=== PATIENT | female | born 1970 | race African-American/Black ===

== ENCOUNTER 2019-08-20 06:46 | Emergency (ER) | payer OTHER ==
[2019-08-20 06:56] VITALS: TEMP 98
[2019-08-20] MEDS ORDERED: diphenhydrAMINE 50 MG/ML 1 ML VIAL IVP STA (07:08)
[2019-08-20] MEDS ORDERED: ACETAMINOPHEN TAB 500 MG TAB PO STA (07:08)
[2019-08-20] MEDS ORDERED: METOCLOPRAMIDE 5 MG/ML 2 ML VIAL IVP STA (07:08)
--- NOTE | 2019-08-20 07:11 | ED ---
Abdominal Pain HPI - General Chief Complaint: Abdominal Pain Stated Complaint: headache, SOB Time Seen by Provider: 08/20/19 06:58 Source: patient, RN notes reviewed, old records reviewed Mode of arrival: ambulatory Limitations: no limitations - History of Present Illness Initial Comments: Patient is a 49-year-old female presents emergency department today for complaints of shortness of breath, headaches, episodes of diarrhea and abdominal discomfort. She's been having symptoms for the past 2 days. He also reports having fevers and chills. She last had Tylenol 3 hours ago. Patient states that she's had exposure to a positive covid contact this week. Patient states that she has had a minor cough. - Related Data Previous Rx's Medication Instructions Recorded Ondansetron Odt [Zofran Odt] 4 mg PO Q8HR PRN #12 tab 08/20/19 Allergies Allergy/AdvReac Type Severity Reaction Status Date / Time No Known Allergies Allergy Verified 08/20/19 06:55 Review of Systems ROS Statement: Those systems with pertinent positive or pertinent negative responses have been documented in the HPI. ROS Other: All systems not noted in ROS Statement are negative. Past Medical History Past Medical History: Asthma, Hypertension, Osteoarthritis (OA) Past Surgical History: No Surgical Hx Reported Past Psychological History: Bipolar Smoking Status: Current every day smoker Past Alcohol Use History: Occasional Past Drug Use History: None Reported General Exam - General Exam Comments Initial Comments: 49-year-old female. Alert. No distress. General: Well appearing, well nourished, in no distress. Oriented x 3, normal mood and affect . Ambulating without difficulty. Skin: Good turgor, no rash, unusual bruising or prominent lesions Hair: Normal texture and distribution. HEENT: Head: Normocephalic, atraumatic, no visible or palpable masses, depressions, or scaring. Eyes: Visual acuity intact, conjunctiva clear, sclera non-icteric, EOM intact, PERRL. Ears: EACs clear, TMs translucent & cone of light visualized. hearing intact. Nose: No external lesions, mucosa non-inflamed, septum and turbinates normal Mouth: Mucous membranes moist, no mucosal lesions. Teeth/Gums: No obvious caries or periodontal disease. No gingival inflammation or significant resorption. Pharynx: Mucosa non-inflamed, no tonsillar hypertrophy or exudate Neck: Supple, without lesions, bruits, or adenopathy, thyroid non-enlarged and non-tender Heart: No cardiomegaly or thrills; regular rate and rhythm, no murmur or gallop Lungs: Clear to auscultation and percussion Abdomen: Bowel sounds normal, epigastric tenderness. Back: Spine normal without deformity or tenderness, no CVA tenderness Extremities: No amputations or deformities, cyanosis, edema or varicosities, peripheral pulses intact Musculoskeletal: Normal gait and station. No misalignment, asymmetry, crepitation, defects, tenderness, masses, effusions, decreased range of motion, instability, atrophy or abnormal strength or tone in the head, neck, spine, ribs, pelvis or extremities. Neurologic: CN 2-12 normal. Sensation to pain, touch, and proprioception normal. DTRs normal in upper and lower extremities. No pathologic reflexes. Psychiatric: Oriented X3, intact recent and remote memory, judgment and insight, normal mood and affect. Limitations: no limitations Course Vital Signs 08/20/19 08/20/19 08/20/19 06:49 06:55 07:55 Temperature 98 F Pulse Rate 99 Respiratory 18 20 20 Rate Blood Pressure 172/90 O2 Sat by Pulse 99 Oximetry 08/20/19 08/20/19 08:55 09:00 Temperature Pulse Rate 68 68 Respiratory 20 20 Rate Blood Pressure 152/85 152/85 O2 Sat by Pulse 100 100 Oximetry - Reevaluation(s) Reevaluation #1: 08/20/19 09:20 Patient was reevaluated and resting comfortably in bed and sleeping. She reports that her headache is improved after Reglan Tylenol and Benadryl. Medical Decision Making - Medical Decision Making Patient is a 49-year-old female who presents emergency department today for evaluation with chief complaint of multiple symptoms including nausea vomiting some complaints of shortness of breath. Patient reports that she's had some minor cough. He was concerned for covert. At this time patient's blood work was reviewed and unremarkable. She complains of a headache and feels better after Tylenol and Benadryl. Chest x-ray was reviewed and negative for any acute process of CT if there is any further clinical concern. Patient had no significant clinical concern at this time is not hypoxic or in any respiratory distress. This time Patient will be discharged after receiving fluids and close follow-up with return parameters. - Lab Data Result diagrams: 08/20/19 07:45 08/20/19 07:45 Lab Results 08/20/19 08/20/19 08/20/19 Range/Units 07:45 07:45 07:45 WBC 4.6 (3.8-10.6) k/uL RBC 4.64 (3.80-5.40) m/uL Hgb 14.4 (11.4-16.0) gm/dL Hct 43.2 (34.0-46.0) % MCV 93.2 (80.0-100.0) fL MCH 31.0 (25.0-35.0) pg MCHC 33.3 (31.0-37.0) g/dL RDW 13.0 (11.5-15.5) % Plt Count 138 L (150-450) k/uL Neutrophils % 67 % Lymphocytes % 25 % Monocytes % 4 % Eosinophils % 1 % Basophils % 0 % Neutrophils # 3.1 (1.3-7.7) k/uL Lymphocytes # 1.2 (1.0-4.8) k/uL Monocytes # 0.2 (0-1.0) k/uL Eosinophils # 0.0 (0-0.7) k/uL Basophils # 0.0 (0-0.2) k/uL PT 10.1 (9.0-12.0) sec INR 1.0 (<1.2) APTT 22.5 (22.0-30.0) sec D-Dimer 0.20 (<0.60) mg/L FEU Sodium 139 (137-145) mmol/L Potassium 3.8 (3.5-5.1) mmol/L Chloride 104 (98-107) mmol/L Carbon Dioxide 22 (22-30) mmol/L Anion Gap 13 mmol/L BUN 15 (7-17) mg/dL Creatinine 1.00 (0.52-1.04) mg/dL Est GFR (CKD-EPI)AfAm 76 (>60 ml/min/1.73 sqM) Est GFR (CKD-EPI)NonAf 66 (>60 ml/min/1.73 sqM) Glucose 96 (74-99) mg/dL Plasma Lactic Acid Trent (0.7-2.0) mmol/L Calcium 9.1 (8.4-10.2) mg/dL Magnesium 1.9 (1.6-2.3) mg/dL Total Bilirubin 0.3 (0.2-1.3) mg/dL AST 30 (14-36) U/L ALT 26 (4-34) U/L Alkaline Phosphatase 77 (38-126) U/L Lactate Dehydrogenase 351 (313-618) U/L Troponin I (0.000-0.034) ng/mL Total Protein 9.0 H (6.3-8.2) g/dL Albumin 4.2 (3.5-5.0) g/dL 08/20/19 08/20/19 Range/Units 07:45 07:45 WBC (3.8-10.6) k/uL RBC (3.80-5.40) m/uL Hgb (11.4-16.0) gm/dL Hct (34.0-46.0) % MCV (80.0-100.0) fL MCH (25.0-35.0) pg MCHC (31.0-37.0) g/dL RDW (11.5-15.5) % Plt Count (150-450) k/uL Neutrophils % % Lymphocytes % % Monocytes % % Eosinophils % % Basophils % % Neutrophils # (1.3-7.7) k/uL Lymphocytes # (1.0-4.8) k/uL Monocytes # (0-1.0) k/uL Eosinophils # (0-0.7) k/uL Basophils # (0-0.2) k/uL PT (9.0-12.0) sec INR (<1.2) APTT (22.0-30.0) sec D-Dimer (<0.60) mg/L FEU Sodium (137-145) mmol/L Potassium (3.5-5.1) mmol/L Chloride (98-107) mmol/L Carbon Dioxide (22-30) mmol/L Anion Gap mmol/L BUN (7-17) mg/dL Creatinine (0.52-1.04) mg/dL Est GFR (CKD-EPI)AfAm (>60 ml/min/1.73 sqM) Est GFR (CKD-EPI)NonAf (>60 ml/min/1.73 sqM) Glucose (74-99) mg/dL Plasma Lactic Acid Trent 2.6 H* (0.7-2.0) mmol/L Calcium (8.4-10.2) mg/dL Magnesium (1.6-2.3) mg/dL Total Bilirubin (0.2-1.3) mg/dL AST (14-36) U/L ALT (4-34) U/L Alkaline Phosphatase (38-126) U/L Lactate Dehydrogenase (313-618) U/L Troponin I <0.012 (0.000-0.034) ng/mL Total Protein (6.3-8.2) g/dL Albumin (3.5-5.0) g/dL 08/20/19 08:16 EKG shows normal sinus rhythm, inferior infarct indeterminate. Abnormal EKG. Ventricular rate 77 bpm. Was 166 most seconds. Chemistry showed a 76 no seconds. QT QTc is 420/44 ms. - Radiology Data Radiology results: report reviewed No suspicious acute infiltrate. Patient may benefit with CT evaluation of strong clinical suspicion persist. Disposition Clinical Impression: Nausea and vomiting, Headache, Dehydration Disposition: HOME SELF-CARE Condition: Stable Instructions (If sedation given, give patient instructions): Acute Nausea and Vomiting (ED), Viral Syndrome (ED) Additional Instructions: Patient's common swab will return in the next 1-2 days if there is any further concerns to call for follow-up. Patient advised to return to the emergency department if any alarming signs or symptoms occur. Use nausea medicine alternate between Motrin and Tylenol for pain. There is any worsening shortness breath or other complaints return to the ED. Prescriptions: Ondansetron Odt [Zofran Odt] 4 mg PO Q8HR PRN #12 tab PRN Reason: Nausea Is patient prescribed a controlled substance at d/c from ED?: No Referrals: Nonstaff,Physician [REFERRING] - 1-2 days Time of Disposition: 10:06
[2019-08-20 08:06] LABS: Basophils % (A) 0 %; Eosinophils % (A) 1 %; HCT 43.2 % (34.0-46.0); HGB 14.4 gm/dL (11.4-16.0); Lymphocytes # (A) 1.2 k/uL (1.0-4.8); Lymphocytes % (A) 25 %; MCHC 33.3 g/dL (31.0-37.0); MCV 93.2 fL (80.0-100.0); Mean Platelet Volume 9.4; Monocytes # (A) 0.2 k/uL (0-1.0); Monocytes % (A) 4 %; Neutrophils # (A) 3.1 k/uL (1.3-7.7); Neutrophils % (A) 67 %; Platelet Count 138 k/uL (150-450); RBC 4.64 m/uL (3.80-5.40); WBC 4.6 k/uL (3.8-10.6)
[2019-08-20 08:26] LABS: D-Dimer 0.2 mg/L FEU (<0.60); Partial Thromboplastin Time 22.5 sec (22.0-30.0); Prothrombin Time 10.1 sec (9.0-12.0)
--- NOTE | 2019-08-20 08:40 | XR ---
EXAMINATION TYPE: XR chest 1V portable DATE OF EXAM: 08/20/2019 COMPARISON: NONE HISTORY: Fever, suspected Covid19 pneumonia. TECHNIQUE: Single AP portable frontal upright view of the chest is obtained. FINDINGS: There is no focal air space opacity, pleural effusion, or pneumothorax seen. The cardiac silhouette size is upper limits of normal. The osseous structures are intact. IMPRESSION: No suspicious acute infiltrate. Patient may benefit with CT evaluation if strong clinica l suspicion persists.
[2019-08-20 08:52] LABS: Albumin 4.2 g/dL (3.5-5.0); Calcium 9.1 mg/dL (8.4-10.2); Magnesium 1.9 mg/dL (1.6-2.3); Potassium 3.8 mmol/L (3.5-5.1); Total Bilirubin 0.3 mg/dL (0.2-1.3)
[2019-08-20] MEDS ORDERED: SODIUM CHLORIDE 0.9% 1,000 ML IV ONE (09:14)
[2019-08-20] MEDS ORDERED: SODIUM CHLORIDE 0.9% 1,000 ML IV SCH (09:15)
[2019-08-20 09:19] VITALS: RESP 20
[2019-08-20 10:32] VITALS: BP 143/79; PULSE 77
[2019-08-20 16:05] LABS: Ferritin 232.4 ng/mL (10.0-291.0)
== END 2019-08-20 10:36 | disposition home or self-care (01) ==
LOC: EC 06:46
DX: E86.0 Dehydration (principal); R11.2 Nausea with vomiting, unspecified; R51 Headache; R06.02 Shortness of breath; R05 Cough; R50.9 Fever, unspecified; R10.816 Epigastric abdominal tenderness; F17.200 Nicotine dependence, unspecified, uncomplicated; Z20.828 Contact with and (suspected) exposure to other viral communicable diseases
CPT/HCPCS: 99285; 96374; 96375; 96361; 36415; 93005; 85379; 80053; 82728; 83605; 83615; 83735; 84484; 85025; 85610; 85730; 86140; 87040; 84145; 87635; 71045; J1200; J2765

== ENCOUNTER → 2020-04-30 | Outpatient (CLI) | payer OTHER ==
--- NOTE | 2020-04-30 18:36 | US ---
EXAMINATION TYPE: US transvaginal DATE OF EXAM: 04/30/2020 COMPARISON: NONE CLINICAL HISTORY: 49-year-old female R10.2 female pelvic pain. TECHNIQUE: Transvaginal (TV). Date of LMP: 2 months prior FINDINGS: EXAM MEASUREMENTS: Uterus: 6.9 x 4.2 x 4.1 cm Endometrial Stripe: 0.7 cm Right Ovary: not visualized/obscured by overlying bowel gas Left Ovary: not visualized/obscured by overlying bowel gas 1. Uterus: heterogeneous, probable fibroids, anterior hyperechoic mass measuring 1.4 x 1.3 x 1.1cm,. Posteriorly, there is a hypoechoic mass measuring 1.8 x 1.1 x 1.2cm 2. Endometrium: wnl 3. Right Ovary: not visualized/obscured by overlying bowel gas 4. Left Ovary: not visualized/obscured by overlying bowel gas 5. Bilateral Adnexa: wnl 6. Posterior cul-de-sac: wnl IMPRESSION: 1. Endometrial stripe measuring 7 mm. The monomer recovery supervisor indicates LMP 2 months prior. If the patient is at menopause, we would expect the endometrial stripe to subsequently decreased in thickness. Follow- up as indicated. 2. At least 2 oh uterine fibroids measuring up to 1.8 cm. 3. Neither ovary could be visualized.
== END | disposition home or self-care (01) ==
LOC: RADUSWWP 14:10
PROVIDERS: ATTEND Internal Medicine
DX: D25.9 Leiomyoma of uterus, unspecified (principal)
CPT/HCPCS: 76830

== ENCOUNTER 2021-11-03 11:42 | Observation (INO) | payer OTHER ==
[2021-11-03 12:40] LABS: INR 0.9 (<1.2); Prothrombin Time 10.1 sec (9.0-12.0)
[2021-11-03 12:44] LABS: Partial Thromboplastin Time 21.4 sec (22.0-30.0)
[2021-11-03 12:50] LABS: Albumin 3.6 g/dL (3.5-5.0); Calcium 8.7 mg/dL (8.4-10.2); Magnesium 1.8 mg/dL (1.6-2.3); Potassium 3.9 mmol/L (3.5-5.1); Total Bilirubin 0.3 mg/dL (0.2-1.3); Total Protein 7.8 g/dL (6.3-8.2)
--- NOTE | 2021-11-03 12:55 | XR ---
EXAMINATION TYPE: XR chest 2V DATE OF EXAM: 11/03/2021 COMPARISON: Chest x-ray August 20, 2019 HISTORY: Chest pain. TECHNIQUE: Frontal and lateral views of the chest are obtained. FINDINGS: Eventration in the anterior aspect right hemidiaphragm. Overlying EKG leads on current stud y. There is no focal air space opacity, pleural effusion, or pneumothorax seen. The cardiac silhoue tte size is upper limits of normal. The osseous structures are intact. IMPRESSION: No acute cardiopulmonary process.
[2021-11-03] MEDS ORDERED: hydrALAZINE HCL 20 MG/ML 1 ML VIAL IVP STA ×2 (12:57→13:46)
[2021-11-03 13:12] LABS: Anisocytosis Slight; Basophils % (A) 0 %; Eosinophils % (A) 1 %; HCT 38.4 % (34.0-46.0); HGB 11.8 gm/dL (11.4-16.0); Hypochromasia Slight; Lymphocytes # (A) 1.4 k/uL (1.0-4.8); Lymphocytes % (A) 30 %; MCH 26.6 pg (25.0-35.0); MCHC 30.7 g/dL (31.0-37.0); MCV 86.6 fL (80.0-100.0); Mean Platelet Volume 10.1; Monocytes # (A) 0.2 k/uL (0-1.0); Monocytes % (A) 5 %; Neutrophils # (A) 2.8 k/uL (1.3-7.7); Neutrophils % (A) 62 %; Platelet Count 116 k/uL (150-450); RBC 4.44 m/uL (3.80-5.40); RDW 17.3 % (11.5-15.5); WBC 4.6 k/uL (3.8-10.6)
--- NOTE | 2021-11-03 13:36 | ED ---
Chest Pain HPI - General Chief Complaint: Chest Pain Stated Complaint: chest pain Time Seen by Provider: 11/03/21 11:57 Source: patient, EMS, RN notes reviewed Mode of arrival: EMS Limitations: no limitations - History of Present Illness Initial Comments: This a 51-year-old female presents emergency Department from doctor's office with chief complaint chest pain. Patient was sent in secondary hypertension chest pain. She states she been off her blood pressure medication for 3 months states that her insurance was messed up. Patient started having worsening chest pain today this is different than usual. Patient states she denies any shortness breath she has slight nausea no diaphoretic episodes. Patient has a significant family history of heart disease. - Related Data Previous Rx's Medication Instructions Recorded Ondansetron Odt [Zofran Odt] 4 mg PO Q8HR PRN #12 tab 08/20/19 Allergies Allergy/AdvReac Type Severity Reaction Status Date / Time No Known Allergies Allergy Verified 08/20/19 06:55 Review of Systems ROS Statement: Those systems with pertinent positive or pertinent negative responses have been documented in the HPI. ROS Other: All systems not noted in ROS Statement are negative. Past Medical History Past Medical History: Asthma, Hypertension, Osteoarthritis (OA) Past Surgical History: No Surgical Hx Reported Past Psychological History: Bipolar Smoking Status: Current every day smoker Past Alcohol Use History: Occasional Past Drug Use History: None Reported General Exam General appearance: alert, in no apparent distress Head exam: Present: atraumatic, normocephalic, normal inspection Eye exam: Present: normal appearance, PERRL, EOMI. Absent: scleral icterus, conjunctival injection, periorbital swelling Neck exam: Present: normal inspection. Absent: tenderness, meningismus, lymphadenopathy Respiratory exam: Present: normal lung sounds bilaterally. Absent: respiratory distress, wheezes, rales, rhonchi, stridor Cardiovascular Exam: Present: regular rate, normal rhythm, normal heart sounds. Absent: systolic murmur, diastolic murmur, rubs, gallop, clicks GI/Abdominal exam: Present: soft, normal bowel sounds. Absent: distended, tenderness, guarding, rebound, rigid Course Vital Signs 11/03/21 11/03/21 11:46 13:05 Temperature 98.4 F Pulse Rate 61 68 Respiratory 20 18 Rate Blood Pressure 194/104 210/102 O2 Sat by Pulse 100 100 Oximetry Chest Pain MDM - MDM 51-year-old presented for chest pain. Patient has have significant hypertension risk factors including family heart disease patient's troponin 0.014 patient's chest pain is different than usual in concern for ACS. Patient be admitted for chronic rule out. Disposition Clinical Impression: Chest pain, Hypertension Disposition: ADMITTED IP TO THIS HOSP Condition: Fair Referrals: None,Stated [Primary Care Provider] - 1-2 days Time of Disposition: 13:36
[2021-11-03] MEDS ORDERED: NITROGLYCERIN SL TABS 0.4 MG TAB SUBLINGUAL PRN (13:37)
--- NOTE | 2021-11-03 15:50 | P.HPIM ---
History of Present Illness H&P Date: 11/03/21 History of Presenting Illness: Patient is a very pleasant 51-year-old female with a past medical history of CAD with previous UT, hypertension, nicotine dependence smoking one pack of cigarettes daily, and alcohol use/abuse. Patient reports that she experienced a previous heart attack and was supposed to follow up outpatient with cardiology for cardiac cath but states due to insurance reasons she never did. Patient also reports that she stopped taking her blood pressure medications 3 months ago because her insurance was messed up. She states over the last month she has been experiencing intermittent chest pain but reports today the chest pain she was experiencing seemed to be a little worse and she knew her blood pressure was out of control. Patient states she became diaphoretic and nauseous and went to her PCP for evaluation. She reports at PCPs office upon obtaining taking her blood pressure at PCPs office called an ambulance to transport her to the hospital. Upon arrival to the hospital patient was found to be in hypertensive urgency with blood pressure of 210/102 and heart rate of 61. EKG was completed showing sinus rhythm at 60 bpm. Chest x-ray negative for acute cardio pulmonary process. CBC revealing thrombocytopenia with platelets 116 (this is chronic in nature). CMP revealing slight elevation of AST of 68 and ALT of 43. Troponin 0.014. Patient was given 2 doses of hydralazine in the emergency department resulting in significant improvement of blood pressure down to 168/82 and being started on amlodipine 10 mg daily. Patient admitted under our services with consultation to cardiology. Upon evaluation at bedside patient reports pain has improved and currently rates 2 out of 10 to midsternal chest. Patient reports this pain being a pressure-like achy pain to her midsternal chest. She denies having any dizziness, lightheadedness, diaphoresis, palpitations, shortness of breath, dyspnea with exertion, cough or congestion, abdominal pain, nausea, vomiting, or experiencing any numbness/tingling/weakness/swelling in her extremities. Review of systems: Pertinent positives and negatives as discussed in HPI, a complete review of systems was performed and all other systems are negative. Physical exam: Vital signs reviewed and stable. General: Nontoxic, no distress and appears stated age. Derm: Skin warm and dry, normal coloration for ethnicity. Head: Atraumatic, normocephalic and symmetric. Eyes: EOMs intact, no lid lag, and anicteric sclera Mouth: no lip lesions, mucus membranes moist Cardiovascular: regular rate and rhythm with normal S1S2, no murmur, positive posterior tibial pulses bilaterally, and cap refill < 2 seconds. Lungs: Respirations even, regular, and unlabored on room air. Lungs CTA bilaterally, no rhonchi, no rales, no wheezing, and no accessory muscle usage. Abdominal: soft, nontender to palpation, no guarding, no appreciable organomegaly Ext: ROM intact. No gross muscle atrophy, no edema, no contractures Neuro: Speech clear, face symmetrical and CN II-XII grossly intact with no noted focal neuro deficits Psych: Alert and oriented to person, place, time, and situation. Appropriate and pleasant affect. Assessment and Plan of Care: Chest pain, rule out acute coronary event -Cardiology consult, appreciate further recommendations -Telemetry monitoring -Trend troponins -Cardiac diet, NPO at midnight -Aspirin, atorvastatin, and metoprolol -Lipid profile with a.m. labs. -Echocardiogram Hypertensive urgency -Blood pressure 210/102, patient was given 2 doses of hydralazine in the emergency department resulting in significant improvement of blood pressure down to 168/82 and being started on amlodipine 10 mg daily. -Continue to monitor vital signs closely. -Telemetry monitoring -Echocardiogram Nicotine dependence -Patient educated on benefits of smoking cessation and risks associated with continued use. -Nicotine patch Alcohol use/abuse -Patient reports drinking approximately one case of beer per week. -Patient reports last alcoholic drink being 2 days ago. -CIWA protocol with symptom triggered medication management with benzodiazepines. -Daily thiamine, multivitamins and folic acid. The patient is admitted with an anticipated less than 2 midnight stay for evalu ation of chest pain and hypertensive urgency CODE STATUS: Full code DVT prophylaxis: Heparin Discussed with: Patient and RN Anticipated discharge date: Tomorrow Anticipated discharge place: Home A total of 45 minutes was spent on the care of this complex patient more than 50% of the time was spent in counseling and care coordination. I reviewed the documentation as provided by the GENNARO above, who is the original author of this note. I agree with the documented assessment and plan, with the following changes: none Past Medical History Past Medical History: Asthma, Hypertension, Osteoarthritis (OA) Past Surgical History: No Surgical Hx Reported Past Psychological History: Bipolar Smoking Status: Current every day smoker Past Alcohol Use History: Occasional Past Drug Use History: None Reported Medications and Allergies Home Medications Medication Instructions Recorded Confirmed Type No Known Home Medications 11/03/21 11/03/21 History Allergies Allergy/AdvReac Type Severity Reaction Status Date / Time No Known Allergies Allergy Verified 08/20/19 06:55 Physical Exam Vitals: Vital Signs Temp Pulse Resp BP Pulse Ox 11/03/21 14:58 168/82 11/03/21 14:22 163/94 11/03/21 13:50 184/104 11/03/21 13:05 68 18 210/102 100 11/03/21 11:46 98.4 F 61 20 194/104 100 Intake and Output 11/03/21 11/03/21 11/03/21 06:59 14:59 22:59 Other: Weight 66.224 kg Results CBC & Chem 7: 11/03/21 12:01 11/03/21 12:01 Labs: Abnormal Lab Results - Last 24 Hours (Table) 11/03/21 11/03/21 11/03/21 Range/Units 12:01 12:01 12:01 MCHC 30.7 L (31.0-37.0) g/dL RDW 17.3 H (11.5-15.5) % Plt Count 116 L (150-450) k/uL APTT 21.4 L (22.0-30.0) sec Chloride 108 H (98-107) mmol/L AST 68 H (14-36) U/L ALT 43 H (4-34) U/L
[2021-11-03] MEDS: amLODIPine 10 MG TAB PO SCH (17:01)
[2021-11-03] MEDS ORDERED: LORazepam 2 MG/ML INJ IV PRN ×3 (17:17)
[2021-11-03] MEDS: THIAMINE 100 MG TAB PO SCH (17:48)
[2021-11-03] MEDS: NICOTINE 21MG/24HR PATCH TRANSDERM SCH (17:48)
[2021-11-03] MEDS: HEPARIN SODIUM,PORCINE/PF 5,000 UNIT/0.5 ML SYRINGE SQ SCH (23:27)
[2021-11-04 07:39] VITALS: RESP 18
[2021-11-04] MEDS: NICOTINE 21MG/24HR PATCH TRANSDERM SCH (07:51)
[2021-11-04] MEDS: amLODIPine 10 MG TAB PO SCH (07:51)
[2021-11-04] MEDS: THIAMINE 100 MG TAB PO SCH (07:51)
[2021-11-04] MEDS: HEPARIN SODIUM,PORCINE/PF 5,000 UNIT/0.5 ML SYRINGE SQ SCH (07:51)
[2021-11-04] MEDS ORDERED: amLODIPine 10 MG TAB PO SCH (09:00)
[2021-11-04] MEDS ORDERED: ASPIRIN 325 MG TAB PO SCH (09:00)
[2021-11-04] MEDS ORDERED: FOLIC ACID 1 MG TAB PO SCH (09:00)
[2021-11-04] MEDS ORDERED: MULTIVITAMINS, THERA 1 EACH TAB PO SCH (09:00)
--- NOTE | 2021-11-04 09:17 | P.CRDCN ---
History of Present Illness History of present illness: HISTORY OF PRESENT ILLNESS: This is a 51-year-old female with a past medical history significant for hypertension, nicotine dependence, and alcohol use. 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 We have been asked to see the patient in consultation for hypertension and chest pain. Patient examined at the bedside. The patient reports yesterday when she was walking she began to feel "funny" in her head. She reports having chest pain in the middle of her chest. She states the pain was nonradiating. She denied any shortness of breath. Patient presented to the hospital and was found to have a blood pressure elevated over 200 systolic. Patient was started on amlodipine 10 mg daily. Blood pressures remain elevated this morning with a systolic in the 170s. The patient denies any further episodes of chest pain or pressure. The patient states that she does have a history of hypertension and was prescribed 2 blood pressure medications however she has not taken these secondary to insurance issues. * EKG reveals sinus mechanism with no signs of acute ischemia * Chest xray negative for acute process * Laboratory data: WBC 4.6. Hemoglobin 11.8. Platelet count 116. Sodium 139. Potassium 3.9. BUN 11. Creatinine 0.95. Troponin negative x 3. * Current home cardiac medications include none. Patient currently not taking her HTN meds. REVIEW OF SYSTEMS: At the time of my exam: CONSTITUTIONAL: Denies fever or chills. HEENT: Denies blurred vision, vision changes, or eye pain. Denies hemoptysis CARDIOVASCULAR: Denies chest pain. Denies orthopnea. Denies PND. Denies palpitations RESPIRATORY: Denies shortness of breath. GASTROINTESTINAL: Denies abdominal pain. Denies nausea or vomiting. HEMATOLOGIC: Denies bleeding disorders. GENITOURINARY: Denies any blood in urine. SKIN: Denies pruitis. Denies rash. PHYSICAL EXAM: VITAL SIGNS: Reviewed. GENERAL: Well-developed in no acute distress. HEENT: Head is normocephalic. Pupils are equal, round. Sclerae anicteric. Mucous membranes of the mouth are moist. Neck supple. No JVD or thyromegaly LUNGS: Respirations even and unlabored. Lungs essentially clear to auscultation bilaterally. HEART: Regular rate and rhythm. S1 and S2 heard. ABDOMEN: Soft. Nondistended. Nontender. EXTREMITIES: Normal range of motion. No clubbing or cyanosis. Peripheral pulses intact. No lower extremity edema NEUROLOGIC: Awake and alert. Oriented x 3. ASSESSMENT: Chest pain, troponins negative 3 Hypertensive urgency History of hypertension Nicotine dependence History of alcohol abuse Mildly elevated LFTs Thrombocytopenia, platelet count 119 PLAN: An acute coronary event has been ruled out Obtain 2-D echo to assess contracture care function Continue amlodipine 10 mg the morning Add valsartan 160 mg at night Continue to monitor blood pressure Absence from alcohol recommended Smoking cessation encouraged Patient may discharged home today from a cardiac standpoint and follow up on an outpatient basis Nurse practitioner note has been reviewed by physician. Signing provider agrees with the documented findings, assessment, and plan of care. Past Medical History Past Medical History: Asthma, Hypertension, Osteoarthritis (OA) History of Any Multi-Drug Resistant Organisms: None Reported Past Surgical History: No Surgical Hx Reported Past Anesthesia/Blood Transfusion Reactions: No Reported Reaction Past Psychological History: Bipolar Smoking Status: Current every day smoker Past Alcohol Use History: Occasional Past Drug Use History: None Reported Medications and Allergies Home Medications Medication Instructions Recorded Confirmed Type No Known Home Medications 11/03/21 11/03/21 History Allergies Allergy/AdvReac Type Severity Reaction Status Date / Time No Known Allergies Allergy Verified 08/20/19 06:55 Physical Exam Vitals: Vital Signs Temp Pulse Pulse Resp BP BP Pulse Ox 11/04/21 07:00 98.2 F 67 18 177/101 100 11/04/21 01:30 98.0 F 79 16 173/75 91 L 11/04/21 00:43 84 15 11/03/21 20:00 84 11/03/21 19:10 98.0 F 84 15 160/84 100 11/03/21 16:11 98.4 F 89 18 169/84 99 11/03/21 14:58 168/82 11/03/21 14:22 163/94 11/03/21 13:50 184/104 11/03/21 13:05 68 18 210/102 100 11/03/21 11:46 98.4 F 61 20 194/104 100 Intake and Output 11/03/21 11/04/21 11/04/21 22:59 06:59 14:59 Intake Total 500 Balance 500 Intake: Oral 500 Other: Voiding Method Toilet Toilet # Voids 2 Weight 66.224 kg Results 11/03/21 12:01 08/03/22 12:01 Cardiac Enzymes 11/03/21 11/03/21 11/03/21 Range/Units 12:01 12:01 15:40 AST 68 H (14-36) U/L Troponin I 0.014 0.012 (0.000-0.034) ng/mL 11/03/21 Range/Units 18:34 AST (14-36) U/L Troponin I 0.023 (0.000-0.034) ng/mL Coagulation 11/03/21 Range/Units 12:01 PT 10.1 (9.0-12.0) sec APTT 21.4 L (22.0-30.0) sec CBC 11/03/21 Range/Units 12:01 WBC 4.6 (3.8-10.6) k/uL RBC 4.44 (3.80-5.40) m/uL Hgb 11.8 (11.4-16.0) gm/dL Hct 38.4 (34.0-46.0) % Plt Count 116 L (150-450) k/uL Comprehensive Metabolic Panel 11/03/21 Range/Units 12:01 Sodium 139 (137-145) mmol/L Potassium 3.9 (3.5-5.1) mmol/L Chloride 108 H (98-107) mmol/L Carbon Dioxide 27 (22-30) mmol/L BUN 11 (7-17) mg/dL Creatinine 0.95 (0.52-1.04) mg/dL Glucose 88 (74-99) mg/dL Calcium 8.7 (8.4-10.2) mg/dL AST 68 H (14-36) U/L ALT 43 H (4-34) U/L Alkaline Phosphatase 72 (38-126) U/L Total Protein 7.8 (6.3-8.2) g/dL Albumin 3.6 (3.5-5.0) g/dL Current Medications Generic Name Dose Route Start Last Admin Trade Name Freq PRN Reason Stop Dose Admin Amlodipine Besylate 10 mg 11/03/21 16:52 11/04/21 07:51 Amlodipine 10 Mg Tab PO 10 mg DAILY ONELIA Administration Aspirin 325 mg 11/04/21 09:00 11/04/21 07:51 Aspirin 325 Mg Tab PO 325 mg DAILY ONELIA Administration Folic Acid 1 mg 11/04/21 09:00 11/04/21 07:51 Folic Acid 1 Mg Tab PO 1 mg DAILY ONELIA Administration Heparin Sodium (Porcine) 5,000 unit 11/04/21 00:00 11/04/21 07:51 Heparin Sodium,Porcine/Pf 5,000 Unit/0.5 Ml Syringe SQ 5,000 unit Q8HR ONELIA Administration Lorazepam 1 mg 11/03/21 17:17 Lorazepam 2 Mg/Ml Inj IV Q2HR PRN CIWA 8 or 9 Lorazepam 1 mg 11/03/21 17:17 Lorazepam 2 Mg/Ml Inj IV Q1HR PRN CIWA 10 to 15 Lorazepam 2 mg 11/03/21 17:17 Lorazepam 2 Mg/Ml Inj IV 11/05/21 17:17 Q10M PRN CIWA 16 or higher Multivitamins 1 each 11/04/21 09:00 11/04/21 07:51 Multivitamins, Thera 1 Each Tab PO 1 each DAILY ONELIA Administration Nicotine 1 patch 11/03/21 17:15 11/04/21 07:51 Nicotine 21mg/24hr Patch TRANSDERM 1 patch DAILY ONELIA Administration Nitroglycerin 0.4 mg 11/03/21 13:37 Nitroglycerin Sl Tabs 0.4 Mg Tab SUBLINGUAL Q5M PRN Chest Pain Thiamine HCl 100 mg 11/03/21 17:30 11/04/21 07:51 Thiamine 100 Mg Tab PO 100 mg BID-W/MEALS ONELIA Administration Intake and Output 11/03/21 11/04/21 11/04/21 22:59 06:59 14:59 Intake Total 500 Balance 500 Intake: Oral 500 Other: Voiding Method Toilet Toilet # Voids 2 Weight 66.224 kg 11/03/21 12:01 11/03/21 12:01
[2021-11-04 09:28] LABS: Chol/HDL Ratio 2.55 Ratio; LDL Cholesterol,Calculated 77.2 mg/dL (0.0-131.0)
[2021-11-04 14:15] VITALS: BP 177/89; PULSE 73; TEMP 97.9
--- NOTE | 2021-11-04 14:52 | P.DS ---
Providers Date of admission: 11/03/21 13:46 Expected date of discharge: 11/04/21 Attending physician: Michoacano Da Silva MD Consults: 11/03/21 13:37 Consult Physician Urgent Consulting Provider: Benjamín Smith Consult Reason/Comments: chest pain, HTN Do you want consulting provider notified?: Yes Primary care physician: Stated None Hospital Course: Discharge Diagnosis: Chest pain, acute coronary event ruled out. Cardiology patient cleared for discharge and to follow-up outpatient in their office in one week to obtain echocardiogram results and continued close monitoring of hypertension. Hypertensive urgency, Patient was started on an being discharged home with prescriptions for amlodipine 10 mg daily and valsartan 160 mg nightly. Patient educated on importance of monitoring her blood pressures daily and documenting these findings in a daily log/sternal to bring with her to her next doctor's appointments as further adjustments may be needed to her blood pressure medication regimen. Nicotine dependence. Patient educated on benefits of smoking cessation and risks associated with continued use. Alcohol use/abuse. Recommended cessation of all alcohol use. Your liver enzymes were slightly elevated and platelets low which could reflect alcohol abuse/misuse, however it is important to follow up outpatient with your primary care provider for continued monitoring and repeat labs to monitor these levels. Slightly elevated liver enzymes, likely secondary to daily alcohol use/abuse. Patient again encouraged to stop drinking alcohol and to follow up outpatient with her primary care provider for continued monitoring and repeat labs. Thrombocytopenia, appears chronic in nature. Patient educated she'll need to follow up outpatient with her primary care provider for continued monitoring and repeat labs. Hospital Course: Patient is a very pleasant 51-year-old female with a past medical history of CAD with previous [place], hypertension, nicotine dependence smoking one pack of cigarettes daily, and alcohol use/abuse. Patient reports that she experienced a previous heart attack and was supposed to follow up outpatient with cardiology for cardiac cath but states due to insurance reasons she never did. Patient also reports that she stopped taking her blood pressure medications 3 months ago because her insurance was messed up. She states over the last month she has been experiencing intermittent chest pain but reports today the chest pain she was experiencing seemed to be a little worse and she knew her blood pressure was out of control. Patient states she became diaphoretic and nauseous and went to her PCP for evaluation. She reports at PCPs office upon obtaining taking her blood pressure at PCPs office called an ambulance to transport her to the hospital. Upon arrival to the hospital patient was found to be in hypertensive urgency with blood pressure of 210/102 and heart rate of 61. EKG was completed showing sinus rhythm at 60 bpm. Chest x-ray negative for acute cardio pulmonary process. CBC revealing thrombocytopenia with platelets 116 (this is chronic in nature). CMP revealing slight elevation of AST of 68 and ALT of 43. Troponin 0.014. Patient was given 2 doses of hydralazine in the emergency department resulting in significant improvement of blood pressure down to 168/82 and being started on amlodipine 10 mg daily. Patient admitted under our services with consultation to cardiology. Patient monitored overnight. She reports feeling great with full resolution of chest pain and reports only complaint this morning is a headache secondary to not having caffeine. Troponins were trended throughout the night of -0.014, 0.012, and 0.023. Lipid profile unremarkable. Patient underwent an echocardiogram results currently pending, cardiology added valsartan 160 mg nightly in addition to amlodipine. Cardiology recommending outpatient follow-up in their office and stated patient can obtain her echocardiogram results at follow-up visit. Patient is medically stable at this time. Blood pressure is better controlled and she is being discharged home with prescriptions for amlodipine 10 mg daily and valsartan 160 mg nightly. Patient educated on importance of taking these medications exactly as prescribed and monitoring her blood pressures daily and documenting these findings in a daily log/sternal to bring with her to her next doctor's appointments as further adjustments may be needed to her blood pressure medication regimen. Patient to follow up outpatient with PCP and cardiology. Physical exam: Vital signs reviewed and stable. General: Nontoxic, no distress and appears stated age. Derm: Skin warm and dry, normal coloration for ethnicity. Head: Atraumatic, normocephalic and symmetric. Eyes: EOMs intact, no lid lag, and anicteric sclera Mouth: no lip lesions, mucus membranes moist Cardiovascular: regular rate and rhythm with normal S1S2, no murmur, positive posterior tibial pulses bilaterally, and cap refill < 2 seconds. Lungs: Respirations even, regular, and unlabored on room air. Lungs CTA bilate rally, no rhonchi, no rales, no wheezing, and no accessory muscle usage. Abdominal: soft, nontender to palpation, no guarding, no appreciable organomegaly Ext: ROM intact. No gross muscle atrophy, no edema, no contractures Neuro: Speech clear, face symmetrical and CN II-XII grossly intact with no noted focal neuro deficits Psych: Alert and oriented to person, place, time, and situation. Appropriate and pleasant affect. A total of 35 minutes of time were spent preparing this complex discharge summary. Pt was discharged on 11/04/21 at 2:48 PM. I reviewed the documentation as provided by the GENNARO above, who is the original author of this note. I agree with the documented assessment and plan, with the following changes: none Patient Condition at Discharge: Stable Plan - Discharge Summary Discharge Rx Participant: No New Discharge Prescriptions: New amLODIPine [Norvasc] 10 mg PO DAILY 30 Days #30 tab Valsartan [Diovan] 160 mg PO HS 30 Days #30 tab Discharge Medication List Valsartan [Diovan] 160 mg PO HS 30 Days #30 tab 11/04/21 [Rx] amLODIPine [Norvasc] 10 mg PO DAILY 30 Days #30 tab 11/04/21 [Rx] Follow up Appointment(s)/Referral(s): Emeterio Corbin MD [STAFF PHYSICIAN] - 1 Week (Office will call with appointment time and date.) Maulik Rivera MD [REFERRING] - 1 Week Patient Instructions/Handouts: Chest Pain (DC) Activity/Diet/Wound Care/Special Instructions: Activity: As tolerated. Take breaks as needed. Diet: Heart healthy and carb consistent diet. Avoid salts, or foods with hidden salts such as canned or boxed foods and frozen dinners. Extra salt makes your heart work harder and traps the fluid in your body for longer. Special Instructions: Take all of your medications as directed and remember to keep all of your doctor's appointments and follow-up as needed. It is of utmost importance to ensure that you're taking her blood pressure medications as prescribed. Uncontrolled blood pressure places you at risks for significant deterioration in your health and can lead to adverse effects such as stroke, heart disease, kidney disease, and even . Please monitoring your blood pressures daily at home. Document these findings and a daily log/journal to bring with you to your next doctor's appointment. Recommend smoking cessation. Also recommend cessation of alcohol use. Your liver enzymes were slightly elevated and platelets low which could reflect alcohol abuse/misuse, however it is important to follow up outpatient with your primary care provider for continued monitoring and repeat labs to monitor these levels. You will need to follow up as advised with water resources project manager, Dr. Corbin to receive your echocardiogram results. Thank you for allowing us to participate in your care, it was truly a pleasure having you for our patient!!! Discharge Disposition: HOME SELF-CARE
--- NOTE | 2021-11-04 15:19 | CA ---
Transthoracic Echo Report Name: Tina Solorzano Age: 51 Gender: F : 1970 Exam Date: 11/03/2021 13:55 Exam Location: [place] [facility] Ht (in): 61 Wt (lb): 146 Ordering Physician: Yusuf Johnson Attending/Referring Phys: [employer] Offbearer Cora Benson RDCS Procedure CPT: Indications: Chest Pain Cardiac Hx: Hx of Angina Technical Quality: Good Contrast 1: Total Dose (mL): Contrast 2: Total Dose (mL): MEASUREMENTS (Male / Female) Normal Values 2D ECHO LV Diastolic Diameter PLAX 4.1 cm 4.2 - 5.9 / 3.9 - 5.3 cm LV Systolic Diameter PLAX 2.5 cm IVS Diastolic Thickness 1.1 cm 0.6 - 1.0 / 0.6 - 0.9 cm LVPW Diastolic Thickness 1.4 cm 0.6 - 1.0 / 0.6 - 0.9 cm LV Relative Wall Thickness 0.6 RV Internal Dim ED PLAX 2.2 cm LA Volume 60.9 cm??? 18 - 58 / 22 - 52 cm??? M-MODE Aortic Root Diameter MM 2.6 cm LA Systolic Diameter MM 3.1 cm LA Ao Ratio MM 1.2 MV E Point Septal Separation 0.5 cm AV Cusp Separation MM 1.6 cm DOPPLER AV Peak Velocity 129.3 cm/s AV Peak Gradient 6.7 mmHg MV Area PHT 5.8 cm??? Mitral E Point Velocity 81.0 cm/s Mitral A Point Velocity 75.6 cm/s Mitral E to A Ratio 1.1 MV Deceleration Time 130.2 ms MV E' Velocity 5.4 cm/s Mitral E to MV E' Ratio 14.9 TR Peak Velocity 106.0 cm/s TR Peak Gradient 4.5 mmHg Right Ventricular Systolic Press 9.5 mmHg PV Peak Velocity 107.7 cm/s PV Peak Gradient 4.6 mmHg FINDINGS Left Ventricle Severe concentric LVH. Left ventricular ejection fraction is estimated at 55-60 %. Grade 1 diastolic dysfunction. Left ventricular cavity size normal. Right Ventricle The right ventricle is normal in size and function. Right Atrium The right atrium is normal in size. Left Atrium Mildly increased left atrial volume. Mitral Valve Structurally normal mitral valve without significant stenosis or prolapse. There is mild mitral regurgitation. Aortic Valve Structurally normal aortic valve without significant sclerosis or stenosis. There is no aortic regurgitation. Tricuspid Valve Structurally normal tricuspid valve without significant stenosis. Pulmonary artery systolic pressure is normal. Mild tricuspid regurgitation. Pulmonic Valve Structurally normal pulmonic valve without significant stenosis. There is no pulmonic regurgitation. Pericardium Normal pericardium without effusion. Aorta Normal aortic root dimension. CONCLUSIONS Severe left frontal hypertrophy with preserved systolic function Previewed by: Dr. Emeterio Corbin MD (Electronically Signed) Final Date: 04 November 2021 15:18
[2021-11-04] MEDS ORDERED: VALSARTAN 160 MG TAB PO SCH (21:00)
[2021-11-05] MEDS ORDERED: ASPIRIN 81 MG PO SCH (09:00)
== END 2021-11-04 15:38 | disposition home or self-care (01) ==
LOC: EC 11:42 → 6NMEDSUR 13:46
PROVIDERS: ADMIT Family Medicine; ATTEND Family Medicine
DX: R07.89 Other chest pain (principal); I16.0 Hypertensive urgency; R74.8 Abnormal levels of other serum enzymes; D69.6 Thrombocytopenia, unspecified; J45.909 Unspecified asthma, uncomplicated; F31.9 Bipolar disorder, unspecified; F17.210 Nicotine dependence, cigarettes, uncomplicated; I25.10 Atherosclerotic heart disease of native coronary artery without angina pectoris; F10.10 Alcohol abuse, uncomplicated; I25.2 Old myocardial infarction; Z82.49 Family history of ischemic heart disease and other diseases of the circulatory system
CPT/HCPCS: 96372 ×2; 96376; 96374; 99285; 36415; 93005; 93306; 80061; 80053; 82533; 82088; 83735; 84484; 85025; 85610; 85730; 71046; G0378 ×2; S4990 ×2; J0360; J1644 ×2

== ENCOUNTER 2024-06-28 12:21 | Inpatient (IN) | payer OTHER ==
--- NOTE | 2024-06-28 12:47 | ED ---
General Adult HPI - General Source: patient, RN notes reviewed <Nu Farris - Last Filed: 06/28/24 12:45> <Monika Oliver - Last Filed: 06/29/24 16:59> - General Stated complaint: nausea, diarrhea, headache Time Seen by Provider: 06/28/24 12:40 - History of Present Illness Initial comments: Quick note54 old female history of hypertension and CAD presented to emergency department with complaints of chest pain and difficulty breathing over the past 2 days. She also endorses dizziness, headaches, rhinorrhea, and dizziness. She initially thought that symptoms were from her hypertension. (Nu Farris) Patient is a 54-year-old female with past medical history of coronary artery disease presenting today for dizziness, nausea and chest pain over the last 2 days. Patient states began having a mild headache 2 nights ago, yesterday morning she woke up and felt lightheaded and dizzy worsen with head movements and getting up. She had associated nausea but no emesis. She took her blood pressure and it was 100/85. She did not go to class like she normally would due to the dizziness. Throughout the day she rested in bed and dizziness did improve but still has a mild headache. She is a current smoker and endorses shortness of breath with ambulation of last 2 days and intermittent chest pain. When she describes a chest pain she said is just a small pain that is sharp, intermittent on left side of her chest. Worsens with activity. She endorses cough, initially endorsed an abscess however upon clarifying further states she had a bloody nose and she coughed up the mucus that had blood in it. She denies fevers but endorses sweats. Denies abdominal pain melena or hematochezia though does endorse 3-4 loose stools for the last 2 days. Patient does have a history of CAD, hypertension and is a current smoker. (Monika Oliver) - Related Data Home Medications Medication Instructions Recorded Confirmed ALPRAZolam [Xanax] 0.25 mg PO DAILY PRN 06/28/24 06/28/24 Cholecalciferol (Vitamin D3) 1,250 mcg PO Q30D 06/28/24 06/28/24 [Vitamin D3 (1250 Mcg = 50,000 Iu)] DULoxetine HCL [Cymbalta] 30 mg PO DAILY 06/28/24 06/28/24 HYDROcodone/APAP 5-325MG [[place] 1 tab PO DAILY PRN 06/28/24 06/28/24 5-325] QUEtiapine [SEROquel] 100 mg PO HS 06/28/24 06/28/24 lisinopriL [Zestril] 10 mg PO DAILY 06/28/24 06/28/24 Previous Rx's Medication Instructions Recorded amLODIPine [Norvasc] 10 mg PO DAILY 30 Days #30 tab 11/04/21 Allergies Allergy/AdvReac Type Severity Reaction Status Date / Time No Known Allergies Allergy Verified 06/28/24 17:51 Review of Systems ROS Other: All systems not noted in ROS Statement are negative. <Nu Farris - Last Filed: 06/28/24 12:45> ROS Other: All systems not noted in ROS Statement are negative. <Monika Oliver - Last Filed: 06/29/24 16:59> ROS Statement: Those systems with pertinent positive or pertinent negative responses have been documented in the HPI. Past Medical History Past Medical History: Asthma, Hypertension, Osteoarthritis (OA) History of Any Multi-Drug Resistant Organisms: None Reported Past Surgical History: No Surgical Hx Reported Past Anesthesia/Blood Transfusion Reactions: No Reported Reaction Past Psychological History: Bipolar Smoking Status: Current every day smoker Past Alcohol Use History: Occasional Past Drug Use History: None Reported <Nu Farris - Last Filed: 06/28/24 12:45> General Exam <Nu Farris - Last Filed: 06/28/24 12:45> <Monika Oliver - Last Filed: 06/29/24 16:59> - General Exam Comments Initial Comments: Visual Physical Exam Vital signs reviewed General: Well-appearing, nontoxic, no acute distress. Head: Normocephalic, atraumatic Eyes: PERRLA, EOMI ENT: Airway patent Chest: Nonlabored breathing Skin: No visual rash, normal skin tone Neuro: Alert and oriented 3 Musculoskeletal: No gross abnormalities (Nu Farris) PE: CONSTITUTIONAL: No apparent distress, well appearing SKIN: Warm, dry, no jaundice, hives or petechiae EYES: Pupils are equally round, extraocular movements intact without nystagmus, clear conjunctiva, non-icteric sclera HENT: Normocephalic, atraumatic, moist mucus membranes, oropharynx clear without exudates NECK: , Full range of motion, normal appearance PULMONARY: Clear to auscultation without wheezes, rhonchi, or rales, normal excursion, no accessory muscle use and no stridor CARDIOVASCULAR: Regular rate, rhythm, normal S1 and S2. No appreciated murmurs, rubs or gallops. Strong radial pulses with intact distal perfusion. No lower extremity edema GASTROINTESTINAL: Soft, active bowel sounds throughout, non-tender, non- distended, no palpable masses, no rebound or guarding. No hepatosplenomegaly GENITOURINARY: MUSCULOSKELETAL: Extremities have no gross deformity, no edema, redness, or swelling. No calf swelling NEUROLOGIC:_a/o x 3, GCS 15, normal mentation and speech. Moves all extremities x 4 without motor or sensory deficit, cranial nerves: II (visual reinoso without defects), III, IV and (extraocular movements are intact, pupils are equal with normal reaction to light), V (intact facial sensation and jaw opening), VII (no facial droop), IX and X (normal palate movement, midline uvula, normal voice), XI (symmetrical shoulder shrug and lateral head rotation against resistance), XII (midline tongue protrusion). Motor strength is 5/5 in all extremities. No abnormal movements. Normal muscle tone. Sensation to light touch is intact bilaterally. No cerebellar signs ([id number], [id number], and rapid alternating movements are normal) PSYCHIATRIC:_normal mood and affect, thought process is clear and linear (Monika Oliver) Course Vital Signs 06/28/24 06/28/24 06/28/24 12:57 18:02 19:26 Temperature 97.5 F L 98.4 F Pulse Rate 82 75 91 Respiratory 17 17 20 Rate Blood Pressure 156/94 152/76 166/84 O2 Sat by Pulse 99 98 96 Oximetry 06/28/24 20:43 Temperature Pulse Rate 91 Respiratory 18 Rate Blood Pressure 134/57 O2 Sat by Pulse 98 Oximetry EKG Findings - EKG Comments: EKG Findings:: Sinus rhythm, 91 bpm, MI interval 140 ms QT/QTc 347/395 ms, normal axis, Q-wave in lead III, T wave inversion lead III, compared to EKG performed onCompared to EKG on 11/03/2021, ST segment does appear more prominent lead. Of note small Q waves in lead III is present on prior EKG as well V2, T wave flattening lead V3 V4 compared to prior, new T wave inversion lead III; no STEMI, intermediate EKG <Monika Oliver - Last Filed: 06/29/24 16:59> Medical Decision Making <Nu Farris - Last Filed: 06/28/24 12:45> - Lab Data Result diagrams: 06/28/24 13:55 06/28/24 13:55 <Monika Oliver - Last Filed: 06/29/24 16:59> - Medical Decision Making I completed the quick note portion of this chart signed Nu Farris PA-C (Nu Farris) Was pt. sent in by a medical professional or institution (MILLY Hester, [employer], urgent c are, hospital, or intermediate...) When possible be specific @ -No Did you speak to anyone other than the patient for history (EMS, parent, family, police, friend...)? What history was obtained from this source @ -No Did you review nursing and triage notes (agree or disagree)? Why? @ -I reviewed nursing and triage notes Were old charts reviewed (outside hosp., previous admission, EMS record, old EKG, old radiological studies, urgent care reports/EKG's, intermediate records)? Report findings @ -Medical records reviewed-reviewed prior EKG, see comparison above Differential Diagnosis (chest pain, altered mental status, abdominal pain women, abdominal pain men, vaginal bleeding, weakness, fever, dyspnea, syncope, headache, dizziness, GI bleed, back pain, seizure, CVA, palpatations, mental h ealth, musculoskeletal)? @Differential Dizziness: Benign paroxysmal positional Vertigo, Meniere's disease, otitis media, acoustic neuroma, vertebrobasilar insufficiency, cerebellar stroke, encephalitis, hypovolemic, arrhythmia, coronary artery syndrome, anemia, this is not meant to be an all-inclusive list Differential Chest Pain: Stable Angina, Unstable Angina, STEMI, NSTEMI Aortic Dissection, pericarditis, pleurisy, chostochondirits, Pneumothorax, Musculoskeletal, Esophageal Spasm GERD, Cholecystitis, Pancreatitis, Zoster, this is not meant to be an all- inclusive list. EKG interpreted by me (3pts min.). @ -As above X-rays interpreted by me (1pt min.). @ -I personally reviewed chest x-ray, I see no evidence of consolidations, pleural effusions or acute process I agree with radiologist interpretation CT interpreted by me (1pt min.). @ -None done U/S interpreted by me (1pt. min.). @ -None done What testing was considered but not performed or refused? (CT, X-rays, U/S, labs)? Why? @ -None What meds were considered but not given or refused? Why? @ -None Did you discuss the management of the patient with other professionals (professionals i.e. , PA, [employer], lab, RT, psych nurse, nursing home social worker, package sealer, teacher, gifts officer, renal case manager)? Give summary @ -No Was smoking cessation discussed for >3mins.? @ -No Was critical care preformed (if so, how long)? @ -No Were there social determinants of health that impacted care today? How? (Homelessness, low income, unemployed, alcoholism, drug addiction, transportation, low edu. Level, literacy, decrease access to med. care, [place] [facility], rehab)? @ -No Was there de-escalation of care discussed even if they declined (Discuss DNR or withdrawal of care, Hospice)? @ -No What co-morbidities impacted this encounter? (DM, HTN, Smoking, COPD, CAD, Cancer, CVA, ARF, Chemo, Hep., AIDS, mental health diagnosis, sleep apnea, morbid obesity)? @ -CAD, hypertension Was patient admitted / discharged? Hospital course, mention meds given and route , prescriptions, significant lab abnormalities, going to OR and other pertinent info. @ -Admission- this is a 54-year-old female history of CAD hypertension presenting today for dizziness, shortness of breath and chest pain with ambulation. Patient did spend initial significant mount of time in the waiting room due to ED surge capacity. I reviewed ATP orders ordered by triage provider. CBC unremarkable, she is mildly hyponatremic with sodium 131 I suspect secondary to episodes of diarrhea, troponin 0.012. . Patient does have some nonspecific EKG changes, given past medical history and current symptoms I do plan for admission for observation for chest pain. Patient to be given aspirin, Tylenol and liter IV normal saline. She is agreeable plan of care. Case discussed with Dr. Andrews who kindly accepted patient for admission. Undiagnosed new problem with uncertain prognosis? @ -No Drug Therapy requiring intensive monitoring for toxicity (Heparin, Nitro, Insulin, Cardizem)? @ -No Were any procedures done? @ -Dizziness, chest pain Diagnosis/symptom? @Dizziness, chest pain Acute, or Chronic, or Acute on Chronic? @ -Acute Uncomplicated (without systemic symptoms) or Complicated (systemic symptoms)? @ -Complicated Side effects of treatment? @ -No Exacerbation, Progression, or Severe Exacerbation? @ -No Poses a threat to life or bodily function? How? (Chest pain, [place], [place], pneumonia, PE, COPD, DKA, ARF, appy, cholecystitis, CVA, Diverticulitis, Homicidal, Suicidal, threat to staff... and all critical care pts) @ -Potentially, if secondary to ACS (Monika Oliver) - Lab Data Lab Results 06/28/24 06/28/24 06/28/24 Range/Units 13:30 13:55 13:55 WBC 6.2 (3.8-10.6) k/uL RBC 4.64 (3.80-5.40) m/uL Hgb 12.6 (11.4-16.0) gm/dL Hct 40.5 (34.0-46.0) % MCV 87.3 (80.0-100.0) fL MCH 27.1 (25.0-35.0) pg MCHC 31.1 (31.0-37.0) g/dL RDW 13.7 (11.5-15.5) % Plt Count 151 (150-450) k/uL MPV 9.1 Neutrophils % 66 % Lymphocytes % 27 % Monocytes % 4 % Eosinophils % 1 % Basophils % 0 % Neutrophils # 4.1 (1.3-7.7) k/uL Lymphocytes # 1.7 (1.0-4.8) k/uL Monocytes # 0.3 (0-1.0) k/uL Eosinophils # 0.0 (0-0.7) k/uL Basophils # 0.0 (0-0.2) k/uL Hypochromasia Slight PT 10.3 (10.0-12.5) sec INR 0.9 (<1.2) APTT 22.4 (22.0-30.0) sec Sodium (137-145) mmol/L Potassium (3.5-5.1) mmol/L Chloride (98-107) mmol/L Carbon Dioxide (22-30) mmol/L Anion Gap mmol/L BUN (7-17) mg/dL Creatinine (0.52-1.04) mg/dL Est GFR (CKD-EPI)AfAm (>60 ml/min/1.73 sqM) Est GFR (CKD-EPI)NonAf (>60 ml/min/1.73 sqM) Glucose (74-99) mg/dL Calcium (8.4-10.2) mg/dL Magnesium (1.6-2.3) mg/dL Total Bilirubin (0.2-1.3) mg/dL AST (14-36) U/L ALT (4-34) U/L Alkaline Phosphatase (38-126) U/L Troponin I (0.000-0.034) ng/mL NT-Pro-B Natriuret Pep pg/mL Total Protein (6.3-8.2) g/dL Albumin (3.5-5.0) g/dL Lipase (23-300) U/L Urine Color Light Yellow Urine Appearance Clear (Clear) Urine pH 5.5 (5.0-8.0) Ur Specific [place] 1.020 (1.001-1.035) Urine Protein Negative (Negative) Urine Glucose (UA) Negative (Negative) Urine Ketones Negative (Negative) Urine Blood Negative (Negative) Urine Nitrite Negative (Negative) Urine Bilirubin Negative (Negative) Urine Urobilinogen <2.0 (<2.0) mg/dL Ur Leukocyte Esterase Negative (Negative) Influenza Type A (PCR) (Not Detectd) Influenza Type B (PCR) (Not Detectd) RSV (PCR) (Not Detectd) SARS-CoV-2 (PCR) (Not Detectd) 06/28/24 06/28/24 06/28/24 Range/Units 13:55 13:55 13:55 WBC (3.8-10.6) k/uL RBC (3.80-5.40) m/uL Hgb (11.4-16.0) gm/dL Hct (34.0-46.0) % MCV (80.0-100.0) fL MCH (25.0-35.0) pg MCHC (31.0-37.0) g/dL RDW (11.5-15.5) % Plt Count (150-450) k/uL MPV Neutrophils % % Lymphocytes % % Monocytes % % Eosinophils % % Basophils % % Neutrophils # (1.3-7.7) k/uL Lymphocytes # (1.0-4.8) k/uL Monocytes # (0-1.0) k/uL Eosinophils # (0-0.7) k/uL Basophils # (0-0.2) k/uL Hypochromasia PT (10.0-12.5) sec INR (<1.2) APTT (22.0-30.0) sec Sodium 131 L (137-145) mmol/L Potassium 4.6 (3.5-5.1) mmol/L Chloride 103 (98-107) mmol/L Carbon Dioxide 23 (22-30) mmol/L Anion Gap 5 mmol/L BUN 19 H (7-17) mg/dL Creatinine 0.73 (0.52-1.04) mg/dL Est GFR (CKD-EPI)AfAm >90 (>60 ml/min/1.73 sqM) Est GFR (CKD-EPI)NonAf >90 (>60 ml/min/1.73 sqM) Glucose 123 H (74-99) mg/dL Calcium 9.2 (8.4-10.2) mg/dL Magnesium 1.9 (1.6-2.3) mg/dL Total Bilirubin 0.8 (0.2-1.3) mg/dL AST 38 H (14-36) U/L ALT 21 (4-34) U/L Alkaline Phosphatase 77 (38-126) U/L Troponin I 0.012 (0.000-0.034) ng/mL NT-Pro-B Natriuret Pep pg/mL Total Protein 9.8 H (6.3-8.2) g/dL Albumin 4.5 (3.5-5.0) g/dL Lipase 125 (23-300) U/L Urine Color Urine Appearance (Clear) Urine pH (5.0-8.0) Ur Specific [place] (1.001-1.035) Urine Protein (Negative) Urine Glucose (UA) (Negative) Urine Ketones (Negative) Urine Blood (Negative) Urine Nitrite (Negative) Urine Bilirubin (Negative) Urine Urobilinogen (<2.0) mg/dL Ur Leukocyte Esterase (Negative) Influenza Type A (PCR) Not Detected (Not Detectd) Influenza Type B (PCR) Not Detected (Not Detectd) RSV (PCR) Not Detected (Not Detectd) SARS-CoV-2 (PCR) Not Detected (Not Detectd) 06/28/24 Range/Units 13:55 WBC (3.8-10.6) k/uL RBC (3.80-5.40) m/uL Hgb (11.4-16.0) gm/dL Hct (34.0-46.0) % MCV (80.0-100.0) fL MCH (25.0-35.0) pg MCHC (31.0-37.0) g/dL RDW (11.5-15.5) % Plt Count (150-450) k/uL MPV Neutrophils % % Lymphocytes % % Monocytes % % Eosinophils % % Basophils % % Neutrophils # (1.3-7.7) k/uL Lymphocytes # (1.0-4.8) k/uL Monocytes # (0-1.0) k/uL Eosinophils # (0-0.7) k/uL Basophils # (0-0.2) k/uL Hypochromasia PT (10.0-12.5) sec INR (<1.2) APTT (22.0-30.0) sec Sodium (137-145) mmol/L Potassium (3.5-5.1) mmol/L Chloride (98-107) mmol/L Carbon Dioxide (22-30) mmol/L Anion Gap mmol/L BUN (7-17) mg/dL Creatinine (0.52-1.04) mg/dL Est GFR (CKD-EPI)AfAm (>60 ml/min/1.73 sqM) Est GFR (CKD-EPI)NonAf (>60 ml/min/1.73 sqM) Glucose (74-99) mg/dL Calcium (8.4-10.2) mg/dL Magnesium (1.6-2.3) mg/dL Total Bilirubin (0.2-1.3) mg/dL AST (14-36) U/L ALT (4-34) U/L Alkaline Phosphatase (38-126) U/L Troponin I (0.000-0.034) ng/mL NT-Pro-B Natriuret Pep 317 pg/mL Total Protein (6.3-8.2) g/dL Albumin (3.5-5.0) g/dL Lipase (23-300) U/L Urine Color Urine Appearance (Clear) Urine pH (5.0-8.0) Ur Specific [place] (1.001-1.035) Urine Protein (Negative) Urine Glucose (UA) (Negative) Urine Ketones (Negative) Urine Blood (Negative) Urine Nitrite (Negative) Urine Bilirubin (Negative) Urine Urobilinogen (<2.0) mg/dL Ur Leukocyte Esterase (Negative) Influenza Type A (PCR) (Not Detectd) Influenza Type B (PCR) (Not Detectd) RSV (PCR) (Not Detectd) SARS-CoV-2 (PCR) (Not Detectd) Disposition <Nu Farris - Last Filed: 06/28/24 12:45> <Monika Oliver - Last Filed: 06/29/24 16:59> Clinical Impression: Chest pain, Dizziness Disposition: ADMITTED IP TO THIS HOSP Condition: Stable
[2024-06-28 14:08] LABS: Appearance,Urine Clear (Clear); Bilirubin,Urine Negative (Negative); Blood,Urine Negative (Negative); Color,Urine Light Yellow; Glucose,Urine (UA) Negative (Negative); Ketones,Urine Negative (Negative); Leukocyte Esterase,Urine Negative (Negative); Nitrite,Urine Negative (Negative); PH, Urine 5.5 (5.0-8.0); Protein,Urine Negative (Negative); Urobilinogen,Urine <2.0 mg/dL (<2.0)
[2024-06-28 14:09] LABS: Basophils % (A) 0 %; Eosinophils % (A) 1 %; HCT 40.5 % (34.0-46.0); HGB 12.6 gm/dL (11.4-16.0); Hypochromasia Slight; Lymphocytes # (A) 1.7 k/uL (1.0-4.8); Lymphocytes % (A) 27 %; MCH 27.1 pg (25.0-35.0); MCHC 31.1 g/dL (31.0-37.0); MCV 87.3 fL (80.0-100.0); Mean Platelet Volume 9.1; Monocytes # (A) 0.3 k/uL (0-1.0); Monocytes % (A) 4 %; Neutrophils # (A) 4.1 k/uL (1.3-7.7); Neutrophils % (A) 66 %; Platelet Count 151 k/uL (150-450); RBC 4.64 m/uL (3.80-5.40); RDW 13.7 % (11.5-15.5); WBC 6.2 k/uL (3.8-10.6)
--- NOTE | 2024-06-28 14:14 | XR ---
EXAMINATION TYPE: XR chest 2V DATE OF EXAM: 06/28/2024 CLINICAL INDICATION: Female, 54 years old with history of Chest Pain, TECHNIQUE: Frontal and lateral views of the chest are obtained. COMPARISON: Chest x-ray November 03, 2021 FINDINGS: There is no focal air space opacity, pleural effusion, or pneumothorax seen. The cardiac silhouette size is stable and upper limits of normal. The osseous structures are intact. IMPRESSION: No acute process. [facility], , 06/28/2024 2:12 PM
[2024-06-28 14:25] LABS: ALT 21 U/L (4-34); African American GFR (CKD) >90 (>60 ml/min/1.73 sqM); Albumin 4.5 g/dL (3.5-5.0); Anion Gap 5 mmol/L; Blood Urea Nitrogen 19 mg/dL (7-17); Calcium 9.2 mg/dL (8.4-10.2); Carbon Dioxide 23 mmol/L (22-30); Chloride 103 mmol/L (98-107); Glucose 123 mg/dL (74-99); Lipase 125 U/L (23-300); Magnesium 1.9 mg/dL (1.6-2.3); Non-African American GFR(CKD) >90 (>60 ml/min/1.73 sqM); Sodium 131 mmol/L (137-145); Total Bilirubin 0.8 mg/dL (0.2-1.3)
[2024-06-28 14:36] LABS: AST 38 U/L (14-36); Alkaline Phosphatase 77 U/L (38-126); Potassium 4.6 mmol/L (3.5-5.1); Total Protein 9.8 g/dL (6.3-8.2)
[2024-06-28 14:44] LABS: Influenza A Not Detected (Not Detectd); Influenza B Not Detected (Not Detectd); RSV Not Detected (Not Detectd)
[2024-06-28 14:46] LABS: INR 0.9 (<1.2); Partial Thromboplastin Time 22.4 sec (22.0-30.0); Prothrombin Time 10.3 sec (10.0-12.5)
[2024-06-28] MEDS ORDERED: ONDANSETRON 4 MG/2 ML VIAL IVP PRN (17:23)
[2024-06-28] MEDS ORDERED: traMADol 50 MG TAB PO PRN (17:23)
[2024-06-28] MEDS ORDERED: MORPHINE SULFATE 4 MG/ML SYRINGE IV PRN (17:23)
[2024-06-28] MEDS ORDERED: CALCIUM CARBONATE 500 MG CHEWABLE PO PRN (17:23)
[2024-06-28] MEDS ORDERED: NALOXONE 0.4 MG/ML 1 ML VIAL IV PRN (17:23)
[2024-06-28] MEDS ORDERED: MAG HYDROX/AL HYDROX/SIMETH 30 ML CUP PO PRN (17:23)
[2024-06-28] MEDS: ASPIRIN 81 MG PO STA (18:24)
[2024-06-28] MEDS: MECLIZINE 12.5 MG TAB PO STA (18:24)
[2024-06-28] MEDS: SODIUM CHLORIDE 0.9% 1,000 ML IV SCH (18:24)
[2024-06-28] MEDS: SODIUM CHLORIDE 0.9% 1,000 ML IV ONE (18:24)
[2024-06-28] MEDS: ACETAMINOPHEN TAB 325 MG TAB PO STA (18:25)
[2024-06-28] MEDS: FAMOTIDINE 20 MG TAB PO SCH (21:40)
[2024-06-28] MEDS ORDERED: ACETAMINOPHEN TAB 325 MG TAB PO PRN (22:00)
[2024-06-29] MEDS ORDERED: HYDROcodone/APAP 5-325MG 1 EACH TAB PO PRN (06:30)
[2024-06-29] MEDS ORDERED: ALPRAZolam 0.25 MG TAB PO PRN (06:30)
[2024-06-29] MEDS: DULoxetine HCL 30 MG CAPSULE.DR PO SCH (09:50)
[2024-06-29] MEDS: lisinopriL 10 MG TAB PO SCH (09:50)
[2024-06-29] MEDS: ENOXAPARIN 40 MG/0.4 ML SYRINGE SQ SCH (09:50)
[2024-06-29] MEDS: amLODIPine 10 MG TAB PO SCH (09:50)
--- NOTE | 2024-06-29 14:19 | P.CRDCN ---
History of Present Illness Consult date: 06/29/24 History of present illness: The patient is a 54-year-old -[place] Citizen female patient with a past medical history significant for "heart attack" with no details from previous medical records in this hospital as well as hypertension and dyslipidemia and smoking and history of alcohol use with currently she does not drink alcohol presented to the hospital complaining of chest discomfort. The patient somewhat is a poor historian but she describes intermittent episodes of chest discomfort in the middle of the chest as a dull feeling with no radiation to the arms or neck or shoulders or back but associated with shortness of breath with exertion but no dizziness or lightness and no presyncope or syncope and no edema in the lower extremities. Her vitals were stable and she was not hypertensive. The EKG showed sinus mechanism with nonspecific ST and T wave abnormalities. Cardiac enzymes came to be unremarkable with currently she is chest pain-free which she was seen by our service back few years ago where she presented with chest discomfort and hypertension emergency and she underwent an echo which showed normal LV systolic function with evidence of hypertensive heart disease. The physical examination is remarkable for regular rhythm with a clear breathing sounds bilaterally and no edema was noted in the lower extremities Assessment Chest discomfort Multiple comorbid conditions including smoking and hypertension and dyslipidemia History of alcohol use currently she is sober Plan Acute coronary event was ruled out Further cardiac testing including stress test and echocardiogram Follow-up with the patient Past Medical History Past Medical History: Asthma, Hypertension, Osteoarthritis (OA) History of Any Multi-Drug Resistant Organisms: None Reported Past Surgical History: No Surgical Hx Reported Past Anesthesia/Blood Transfusion Reactions: No Reported Reaction Past Psychological History: Bipolar Smoking Status: Current every day smoker Past Alcohol Use History: Occasional Additional Past Alcohol Use History / Comment(s): patient reports smoking 1/2 pack of cigarettes every other day Past Drug Use History: Cocaine - Past Family History Mother Family Medical History: Hypertension Father Family Medical History: Hypertension Sister(s) Family Medical History: Cancer Additional Family Medical History / Comment(s): Breast cancer Medications and Allergies Home Medications Medication Instructions Recorded Confirmed Type amLODIPine [Norvasc] 10 mg PO DAILY 30 Days #30 tab 11/04/21 06/28/24 Rx ALPRAZolam [Xanax] 0.25 mg PO DAILY PRN 06/28/24 06/28/24 History Cholecalciferol (Vitamin D3) 1,250 mcg PO Q30D 06/28/24 06/28/24 History [Vitamin D3 (1250 Mcg = 50,000 Iu)] DULoxetine HCL [Cymbalta] 30 mg PO DAILY 06/28/24 06/28/24 History HYDROcodone/APAP 5-325MG [[place] 1 tab PO DAILY PRN 06/28/24 06/28/24 History 5-325] QUEtiapine [SEROquel] 100 mg PO HS 06/28/24 06/28/24 History lisinopriL [Zestril] 10 mg PO DAILY 06/28/24 06/28/24 History Allergies Allergy/AdvReac Type Severity Reaction Status Date / Time No Known Allergies Allergy Verified 06/28/24 17:51 Physical Exam Vitals: Vital Signs Temp Pulse Pulse Resp BP BP Pulse Ox 06/29/24 07:05 97.9 F 68 17 145/75 100 06/29/24 02:00 98.1 F 69 17 145/80 93 L 06/28/24 21:16 98.5 F 83 17 162/91 97 06/28/24 20:43 91 18 134/57 98 06/28/24 19:26 91 20 166/84 96 06/28/24 18:02 98.4 F 75 17 152/76 98 Intake and Output 06/28/24 06/29/24 06/29/24 22:59 06:59 14:59 Other: Voiding Method Toilet Toilet # Voids 2 Weight 80.739 kg Results 06/28/24 13:55 06/28/24 13:55 Cardiac Enzymes 06/28/24 06/28/24 06/28/24 Range/Units 13:55 13:55 18:19 AST 38 H (14-36) U/L Troponin I 0.012 0.015 (0.000-0.034) ng/mL 06/28/24 Range/Units 20:41 AST (14-36) U/L Troponin I <0.012 (0.000-0.034) ng/mL Coagulation 06/28/24 Range/Units 13:55 PT 10.3 (10.0-12.5) sec APTT 22.4 (22.0-30.0) sec Comprehensive Metabolic Panel 06/28/24 Range/Units 13:55 Sodium 131 L (137-145) mmol/L Potassium 4.6 (3.5-5.1) mmol/L Chloride 103 (98-107) mmol/L Carbon Dioxide 23 (22-30) mmol/L BUN 19 H (7-17) mg/dL Creatinine 0.73 (0.52-1.04) mg/dL Glucose 123 H (74-99) mg/dL Calcium 9.2 (8.4-10.2) mg/dL AST 38 H (14-36) U/L ALT 21 (4-34) U/L Alkaline Phosphatase 77 (38-126) U/L Total Protein 9.8 H (6.3-8.2) g/dL Albumin 4.5 (3.5-5.0) g/dL Current Medications Generic Name Dose Route Start Last Admin Trade Name Freq PRN Reason Stop Dose Admin Acetaminophen 650 mg 06/28/24 22:00 Acetaminophen Tab 325 Mg Tab PO Q6HR PRN Mild Pain or Fever > 100.5 Hydrocodone Bitart/Acetaminophen 1 each 06/29/24 06:30 Hydrocodone/Apap 5-325mg 1 Each Tab PO DAILY PRN Pain Al Hydroxide/Mg Hydroxide 15 ml 06/28/24 17:23 Mag Hydrox/Al Hydrox/Simeth 30 Ml Cup PO Q6HR PRN Indigestion Alprazolam 0.25 mg 06/29/24 06:30 Alprazolam 0.25 Mg Tab PO DAILY PRN Anxiety Amlodipine Besylate 10 mg 06/29/24 09:00 06/29/24 09:50 Amlodipine 10 Mg Tab PO 10 mg DAILY ONELIA Administration Calcium Carbonate/Glycine 1,000 mg 06/28/24 17:23 Calcium Carbonate 500 Mg Chewable PO Q4HR PRN Dyspepsia Duloxetine HCl 30 mg 06/29/24 09:00 06/29/24 09:50 Duloxetine Hcl 30 Mg Capsule.Dr PO 30 mg DAILY ONELIA Administration Enoxaparin Sodium 40 mg 06/29/24 09:00 06/29/24 09:50 Enoxaparin 40 Mg/0.4 Ml Syringe SQ 40 mg DAILY ONELIA Administration Ergocalciferol 1,250 mcg 07/02/24 09:00 Ergocalciferol 1,250 Mcg (50,000 Iu) Capsule PO Q30D [facility] Famotidine 20 mg 06/28/24 21:00 06/29/24 09:50 Famotidine 20 Mg Tab PO 20 mg BID ONELIA Administration Sodium Chloride 1,000 mls @ 75 mls/hr 06/28/24 17:30 06/29/24 10:01 Saline 0.9% IV 75 mls/hr .[id number] ONELIA Administration Lisinopril 10 mg 06/29/24 09:00 06/29/24 09:50 Lisinopril 10 Mg Tab PO 10 mg DAILY ONELIA Administration Morphine Sulfate 4 mg 06/28/24 17:23 Morphine Sulfate 4 Mg/Ml Syringe IV Q4HR PRN Severe Pain (Scale 7 to 10) Naloxone HCl 0.2 mg 06/28/24 17:23 Naloxone 0.4 Mg/Ml 1 Ml Vial IV Q2M PRN Opioid Reversal Ondansetron HCl 4 mg 06/28/24 17:23 Ondansetron 4 Mg/2 Ml Vial IVP Q8HR PRN Nausea And Vomiting Quetiapine Fumarate 100 mg 06/29/24 21:00 Quetiapine 100 Mg Tab PO HS [facility] Tramadol HCl 50 mg 06/28/24 17:23 Tramadol 50 Mg Tab PO Q6H PRN Moderate Pain (Scale 4 to 6) Intake and Output 06/28/24 06/29/24 06/29/24 22:59 06:59 14:59 Other: Voiding Method Toilet Toilet # Voids 2 Weight 80.739 kg 06/28/24 13:55 06/28/24 13:55
[2024-06-29] MEDS: QUEtiapine 100 MG TAB PO SCH (20:59)
--- NOTE | 2024-06-30 12:52 | P.PN ---
Subjective Progress Note Date: 06/30/24 The patient is a 54-year-old -[place] female patient with a past medical history significant for "heart attack" with no details from previous medical records in this hospital as well as hypertension and dyslipidemia and smoking and history of alcohol use with currently she does not drink alcohol presented to the hospital complaining of chest discomfort. The patient somewhat is a poor historian but she describes intermittent episodes of chest discomfort in the middle of the chest as a dull feeling with no radiation to the arms or neck or shoulders or back but associated with shortness of breath with exertion but no dizziness or lightness and no presyncope or syncope and no edema in the lower extremities. Her vitals were stable and she was not hypertensive. The EKG showed sinus mechanism with nonspecific ST and T wave abnormalities. Cardiac enzymes came to be unremarkable with currently she is chest pain-free which she was seen by our service back few years ago where she presented with chest discomfort and hypertension emergency and she underwent an echo which showed normal LV systolic function with evidence of hypertensive heart disease. The physical examination is remarkable for regular rhythm with a clear breathing sounds bilaterally and no edema was noted in the lower extremities June 30, 2024 The patient was seen and evaluated this morning with currently she is chest pain-free. She would like to have a stress test while she is here. With that being said and going to schedule the patient to undergo a Lexiscan Cardiolite stress test because she is not quite sure if she can walk on the treadmill. The physical examination is remarkable for regular rhythm with a clear breathing sounds bilaterally and no edema was noted in the lower extremities Assessment Chest discomfort Multiple comorbid conditions including smoking and hypertension and dyslipidemia History of alcohol use currently she is sober Plan Acute coronary event was ruled out Further cardiac testing including stress test and echocardiogram Follow-up with the patient Objective - Vital Signs Vital signs: Vital Signs Temp 98.4 F 06/30/24 07:15 Pulse 69 06/30/24 07:15 Resp 16 06/30/24 07:15 BP 142/72 06/30/24 07:15 Pulse Ox 100 06/30/24 07:15 FiO2 Intake & Output 06/29/24 06/30/24 06/30/24 18:59 06:59 18:59 Intake Total 600 Balance 600 Intake: Oral 600 Other: Voiding Method Toilet # Voids 2 1 - Labs CBC & Chem 7: 06/28/24 13:55 06/28/24 13:55
[2024-07-01] MEDS ORDERED: AMINOPHYLLINE 500 MG/20 ML VIAL IV PRN (06:00)
[2024-07-01] MEDS ORDERED: CAFFEINE CITRATE 60 MG/3 ML VIAL IV PRN (06:00)
[2024-07-01] MEDS ORDERED: REGADENOSON 0.4 MG/5 ML SYRINGE IV PRN (06:00)
--- NOTE | 2024-07-01 11:59 | NM ---
EXAMINATION TYPE: NM stress lexiscan cardiolite DATE OF EXAM: 07/01/2024 COMPARISON: NONE CLINICAL INDICATION: Female, 54 years old with history of CP; history of hypertension and tobacco use and asthma along with prior heart attack TECHNIQUE: After the intravenous administration of 10.1 mCi Tc 99m Sestamibi - Cardiolite resting SP ECT images acquired 70 minutes post injection. The patient received 0.4mg Lexiscan, 24.4 mCi Tc 99m Sestamibi - Stress images obtained [address] injection FINDINGS: Review of stress and rest SPECT images demonstrates diminished radiotracer uptake in the inferolatera l wall on stress and rest images that is more prominent on stress images versus rest images and thus acute ischemia on background old infarct cannot be excluded. Gated analysis shows overall estimated left ventricular ejection fraction of 52 %. IMPRESSION: Cannot exclude acute ischemia involving inferior lateral left ventricular wall . Consider direct catheter angiogram evaluation based on clinical correlation. [facility], , 07/01/2024 11:56 AM
--- NOTE | 2024-07-01 14:22 | HP ---
HISTORY AND PHYSICAL CHIEF COMPLAINT: Chest pain. HISTORY OF PRESENT ILLNESS: This is another admission for this -vizp-efq female who presented to the emergency room with chest pain. Studies were negative in terms of troponins and EKG. REVIEW OF SYSTEMS: She denies diaphoresis, shortness of breath, etc. Past medical history, family history, and personal and social histories reveal that she has been on amlodipine, Vicodin, Xanax, lisinopril, atorvastatin, and metoprolol. Remainder of her history is unremarkable. PHYSICAL EXAMINATION: VITAL SIGNS: Blood pressure is 130/68 with a pulse 75, respirations of 16. She is afebrile. GENERAL: She appeared to be well developed, well nourished, in no acute distress. SKIN: Color is normal. Skin is warm and dry. Lymph nodes are not enlarged. HEAD, EARS, EYES, NOSE, MOUTH AND THROAT: Normal. Neck veins not distended. CHEST: Clear. CARDIAC: Normal. ABDOMEN: Soft, nontender. EXTREMITIES: Normal. IMPRESSION: 1. Chest pain. 2. History of hypertension. 3. History of hyperlipidemia. PLAN: 1. Bed rest. 2. IV fluids. 3. Serial EKGs and enzymes. MMODL / IJN: [id number] /
--- NOTE | 2024-07-01 14:22 | PN ---
PROGRESS NOTE DATE OF SERVICE: 06/29/2024 CHIEF COMPLAINT: Chest pain. HISTORY OF PRESENT ILLNESS: This lady is doing better. Pain subsided. Studies have been negative so far, but she still feels slightly short of breath. PHYSICAL EXAMINATION: CHEST: Clear. CARDIAC: Normal. ABDOMEN: Soft, nontender. IMPRESSION: Chest pain. PLAN: Increase activity and probably home tomorrow if she remains stable. MMODL / IJN: [id number] /
--- NOTE | 2024-07-01 14:22 | PN ---
PROGRESS NOTE DATE OF SERVICE: 06/30/2024 CHIEF COMPLAINT: Chest pain. HISTORY OF PRESENT ILLNESS: This lady is doing well. She has had no further pain. Apparently, she is going for another cardiac study tomorrow. PHYSICAL EXAMINATION: VITAL SIGNS: Normal. CHEST: Clear. CARDIAC: Normal. ABDOMEN: Soft, nontender. IMPRESSION: Chest pain. PLAN: Further cardiac evaluation tomorrow and then discharge. MMODL / IJN: [id number] /
--- NOTE | 2024-07-01 15:13 | PN ---
PROGRESS NOTE CHIEF COMPLAINT: Chest pain. HISTORY OF PRESENT ILLNESS: This lady is doing well. She is going for further cardiac studies today. PHYSICAL EXAMINATION: CHEST: Clear. CARDIAC: Normal. ABDOMEN: Soft, nontender. IMPRESSION: Chest pain. PLAN: Further cardiac workup today. MMODL / IJN: [id number] /
--- NOTE | 2024-07-01 18:48 | CA ---
Transthoracic Echo Report Name: Tina Solorzano Age: 54 Gender: F : 1970 Exam Date: 07/01/2024 11:25 Exam Location: [place] [facility] Ht (in): 61 Wt (lb): 178 Ordering Physician: Benjamín Smith MD ([id number]) Attending/Referring Phys: Sales Agent Insurance Alvino Rojas, DOMO Procedure CPT: Indications: Chest Pain Cardiac Hx: HTN, CAD, Asthma Technical Quality: Good Contrast 1: Total Dose (mL): Contrast 2: Total Dose (mL): MEASUREMENTS (Male / Female) Normal Values 2D ECHO LV Diastolic Diameter PLAX 4.7 cm 4.2 - 5.9 / 3.9 - 5.3 cm LV Systolic Diameter PLAX 3.5 cm IVS Diastolic Thickness 1.0 cm 0.6 - 1.0 / 0.6 - 0.9 cm LVPW Diastolic Thickness 1.2 cm 0.6 - 1.0 / 0.6 - 0.9 cm LV Relative Wall Thickness 0.5 RV Internal Dim ED PLAX 3.2 cm LVOT Diameter 1.8 cm Aortic Root Diameter 2.2 cm LA Systolic Diameter LX 4.4 cm 3.0 - 4.0 / 2.7 - 3.8 cm LV Diastolic Volume MOD 4C 85.6 cm??? LV Systolic Volume MOD 4C 40.2 cm??? LV Ejection Fraction MOD 4C 53.0 % LV Diastolic Length 4C 7.6 cm LV Systolic Length 4C 6.2 cm DOPPLER MR Peak Velocity 621.5 cm/s MR Peak Gradient 154.5 mmHg Mitral E Point Velocity 68.5 cm/s Mitral A Point Velocity 96.5 cm/s Mitral E to A Ratio 0.7 MV Deceleration Time 254.7 ms LV E' Lateral Velocity 5.4 cm/s Mitral E to LV E' Lateral Ratio 12.6 LV E' Septal Velocity 5.0 cm/s Mitral E to LV E' Septal Ratio 13.7 FINDINGS Left Ventricle Left ventricular ejection fraction is estimated at 60%. Normal Left ventricular size, systolic function with no obvious regional wall motion abnormalities. Mild concentric left ventricular hypertrophy. Right Ventricle Normal right ventricular size and function. Right ventricular systolic pressure within normal limits. Right Atrium Normal right atrial size. Left Atrium Normal left atrial size. Mitral Valve Mitral valve thickened. No mitral stenosis. Mild mitral regurgitation. Aortic Valve Trileaflet aortic valve. Thickened aortic valve without stenosis. Mild aortic regurgitation. Tricuspid Valve Structurally normal tricuspid valve. No tricuspid stenosis. Trace tricuspid regurgitation. Pulmonic Valve Structurally normal pulmonic valve. No pulmonic stenosis. Trace pulmonic regurgitation. Pericardium No pericardial or pleural effusion. Aorta Normal size aortic root and proximal ascending aorta. CONCLUSIONS Indication: Chest pain Preserved LV size and function with mild LVH Prominent posterior pericardial stripe/thickened pericardium without effusion Previewed by: Dr. Emeterio Corbin MD (Electronically Signed) Final Date: 01 July 2024 18:47
--- NOTE | 2024-07-01 19:31 | CA ---
Lexiscan Nuclear Stress Test Report Name: Tina Solorzano Exam Date: 07/01/2024 08:22 Exam Location: [place] Stress Ht (in): 61 Wt (lb): 178 BSA: 1.80 Ordering Phys: Benjamín Smith MD Referring Phys: ADRIANNA Technologist: CADEN GIBBONS Age: 54 Gender: F : 1970 Procedure CPT: Indications: Reflex order-Stress test ICD-10 Codes: Patient History: CP, VIRGEN, PALP, HTN, FAMILY HX, CURRENT TOB, ASTHMA, PRIOR MS. Medications: SEE CHART,,, Meds past 24 hrs: Pretest Chest Pain: STRESS TEST Lexiscan Protocol Exercise Duration (min:sec): 02:[address] Depressions (mm): Angina Score: Virk Score: Resting HR (bpm): 65 Peak HR (bpm): 107 Resting BP (mmHg): 155 / 69 Peak BP (mmHg): 159 / 74 MPHR: 164 Target HR: 139 % MPHR: 65 METS: 1.0 Total Dose: Peak Dose: Atropine: Double Product: 67294 BP Response: Stress Termination: INFUSION COMPLETE Stress Symptoms: NO SYMPTOMS Stress Summary: ECG ANALYSIS Resting ECG: Stress ECG: CONCLUSIONS Indication of procedure: Chest pain Patient underwent Lexiscan Cardiolite stress test No ECG evidence for ischemia during infusion No symptoms Nuclear portion will be reported separately Dr. Emeterio Corbin MD (Electronically Signed) Final Date: 01 July 2024 19:30
[2024-07-01] MEDS ORDERED: NITROGLYCERIN SL TABS 0.4 MG TAB SUBLINGUAL PRN (20:25)
[2024-07-01] MEDS ORDERED: ALPRAZolam 0.25 MG TAB PO PRN (20:25)
[2024-07-01] MEDS ORDERED: ALPRAZolam 0.5 MG TAB PO PRN (20:25)
--- NOTE | 2024-07-01 20:25 | P.PN ---
Progress Note - Text Patient evaluated. Denies any chest discomfort. Resting comfortably in bed On examination blood pressure 138/82 mmHg pulse rate in the 70s afebrile Breath sounds are clear Heart sounds S1-S2 normal Impression Patient presented with chest discomfort 2D echo shows preserved LV systolic function with pericardial thickening Nuclear portion of the stress test was read as abnormal with possible inferolateral ischemia Discussed with Dr. Smith Will proceed with coronary angiography tomorrow Start baby aspirin Start atorvastatin 40 mg p.o. daily Discussed with the patient and discussed with her nurse
[2024-07-01] MEDS: ASPIRIN 81 MG PO SCH (20:50)
[2024-07-01] MEDS: ATORVASTATIN 40 MG TAB PO SCH (20:50)
[2024-07-02] MEDS: ASPIRIN 325 MG TAB PO ONE (05:41)
[2024-07-02] MEDS: ATORVASTATIN 80 MG TAB PO ONE (05:41)
[2024-07-02 06:29] LABS: Glucose,Whole Blood 98 mg/dL (70-110)
[2024-07-02 07:37] LABS: Glucose,Whole Blood 110 mg/dL (70-110)
[2024-07-02] MEDS: IV FLUID CONTINUATION 1,000 ML IV ONE (08:00)
[2024-07-02] MEDS: LIDOCAINE 1% INJ 10MG/ML (20 ML MDV) SQ ONE (08:04)
[2024-07-02] MEDS: fentaNYL (PF) 50 MCG/ML 2 ML AMP IVP ONE (08:05)
[2024-07-02] MEDS: MIDAZOLAM 2 MG/2 ML VIAL IVP ONE ×2 (08:05→08:50)
[2024-07-02] MEDS: VERAPAMIL SYRINGE (5 MG/10 ML) INTRAARTER ONE (08:06)
[2024-07-02] MEDS: HEPARIN SODIUM 1,000 UN/ML (10ML VL) IV ONE (08:08)
[2024-07-02] MEDS: HEPARIN SODIUM,PORCINE 10,000 UNIT in SODIUM CHLORIDE 0.9% 1,000 ML IRRIGATION PRN (08:10)
[2024-07-02] MEDS: HEPARIN SODIUM,PORCINE (1 ML) 2,500 UNIT in SODIUM CHLORIDE 0.9% 250 ML IRRIGATION PRN (08:11)
[2024-07-02] MEDS: IOPAMIDOL-370 100ML BTL INJ ONE ×2 (08:33→09:02)
[2024-07-02] MEDS: PRASUGREL 10 MG TAB PO ONE (08:46)
[2024-07-02] MEDS: MORPHINE SULFATE 4 MG/ML SYRINGE IVP ONE (08:55)
[2024-07-02] MEDS: NITROGLYCERIN 1000MCG/10ML SYRINGE INTRACORON ONE (08:56)
[2024-07-02] MEDS ORDERED: NITROGLYCERIN SL TABS 0.4 MG TAB SUBLINGUAL PRN (09:01)
[2024-07-02] MEDS ORDERED: ZOLPIDEM 5 MG TAB PO PRN (09:01)
[2024-07-02] MEDS ORDERED: RX INFO: IV CONTRAST WAS GIVEN 1 EACH MISC MISCELLANE PRN (09:01)
[2024-07-02] MEDS ORDERED: ATROPINE SULFATE 0.1 MG/ML 10ML SYRINGE IV PRN (09:01)
[2024-07-02] MEDS ORDERED: MAG HYDROX/AL HYDROX/SIMETH 30 ML CUP PO PRN (09:01)
--- NOTE | 2024-07-02 09:06 | P.PCN ---
Date of Procedure: 07/02/24 Operative Findings: CARDIAC CATHETERIZATION AND PERCUTANEOUS CORONARY INTERVENTION PERFORMING PHYSICIAN: Benjamín Smith MD, [facility] PROCEDURE PERFORMED: 1. Selective right and left coronary angiogram and left heart catheterization 2. Successful stenting of proximal RCA using 3.25 x 18 mm Xience FARAZ with an excellent angiographic results 3. Adjunctive use of IVUS and IFR 4. Ultrasound-guided access of the right radial artery INDICATION: Symptomatic 54-year-old female patient who underwent myocardial perfusion imaging stress test in the workup of ischemia that came to be abnormal showing an inferior ischemia COMPLICATION: None APPROACH: Right radial LEVEL OF SEDATION: Moderate with the sedation time off 56 minutes PROCEDURE DESCRIPTION: After obtaining informed consent the patient was brought to the cardiac Checker Stocker. The right radial artery was cannulated using micropuncture technique under ultrasound guidance the micropuncture wire passed easily then I placed a 6 Georgian 11 cm sheath at the right radial artery and give the patient 2 mg of verapamil intra-arterial and 5000's of heparin intravenous. Selective right and left coronary angiogram performed using JR4 and JL 3.5 catheters. Left heart catheterization was performed using JR4 catheter. After that I decided to do an IFR of the LCx. After zeroing the Dobler wire and equalizing between the Dobler wire and guiding catheter the left main was engaged using JL 3.5 guiding catheter with given the tortuosity of the left circumflex I decided to wire the left circumflex using a whisper wire to straighten the tortuosity then I did wired using the Dobler wire with IFR came into at 0.74. After that I did keep the 2 wires in. I did IVUS of the left circumflex but the IVUS catheter was only able to reach the ostial left circumflex. It showed a diameter around 3 mm to 3.25 mm with the predilatation was performed using 2.5 mm semicompliant balloon and then 2.5 mm noncompliant balloon before I deployed 3.25 x 18 mm stent which was positioned under fluoroscopy guidance and deployed under fluoroscopy guidance with final angiogram showing good angiographic results SELECTIVE CORONARY ANGIOGRAM: The right coronary artery: Large caliber vessel and a dominant vessel appears to be chronically occluded in the distal portion fills by contralateral collateral. Left main: Is angiographically normal The left circumflex: Large caliber vessel nondominant vessel with severe disease involving the proximal portion documented to be flow-limiting by Doppler The left anterior descending artery: Appears to be angiographically normal with no evidence of high-grade stenosis HEMODYNAMICS: The LVEDP was 20 mmHg with no significant gradient across the aortic valve. CONCLUSION: 1. Chronic total occlusion of the RCA distally and the RCA fills by contralateral collateral 2. Severe disease involving the proximal left circumflex. I did successful PCI of the LCx 3. Elevated left-sided filling pressure POSTPROCEDURE MANAGEMENT: 1. Dual antiplatelet therapy using aspirin and Brilinta for 6-12 month 2. Aggressive cholesterol control 3. Follow-up with the patient
[2024-07-02] MEDS: SODIUM CHLORIDE 0.9% 1,000 ML in EMPTY BAG 1 BAG IV SCH (09:36)
[2024-07-02] MEDS: ERGOCALCIFEROL 1,250 MCG (50,000 IU) CAPSULE PO SCH (10:30)
[2024-07-02 14:12] VITALS: BMI 33.6
--- NOTE | 2024-07-03 02:52 | PN ---
PROGRESS NOTE CHIEF COMPLAINT: Chest pain. HISTORY OF PRESENT ILLNESS: This lady was taken to the laboratory sampler this morning and was found to have a narrowed circumflex artery, which was stented. She is doing well. REVIEW OF SYSTEMS: She has no complaints of discomfort in the leg, chest pain, shortness of breath, etc. IMPRESSION: Coronary artery disease. PLAN: Probably home tomorrow. MMODL / ANNALEEN: [id number] /
[2024-07-03 06:32] LABS: African American GFR (CKD) >90 (>60 ml/min/1.73 sqM); Non-African American GFR(CKD) 86 (>60 ml/min/1.73 sqM)
[2024-07-03 08:43] LABS: LDL Cholesterol,Calculated 77.7 mg/dL (0.0-131.0); VLDL Calculation 14.78 mg/dL (5.00-40.00)
[2024-07-03] MEDS: PRASUGREL 10 MG TAB PO SCH (10:30)
--- NOTE | 2024-07-03 13:33 | P.PN ---
Subjective Progress Note Date: 07/03/24 Patient evaluated. Denies any chest discomfort. Resting comfortably in bed On examination blood pressure 123/76 mmHg pulse rate in the 70s and 80s, afebrile Breath sounds are clear Heart sounds S1-S2 normal Impression Patient presented with chest discomfort 2D echo shows preserved LV systolic function with pericardial thickening Nuclear portion of the stress test was read as abnormal with possible inferolateral ischemia Cardiac catheterization revealed chronic total occlusion of the RCA distally in the RCA fills by contralateral collateral. Severe disease involving the proximal left circumflex status post successful PCI of the left circumflex. Elevated left-sided filling pressures. Patient is to be on dual antiplatelet therapy with aspirin and Brilinta for 6 to 12 months. Continue aggressive cholesterol control. Continue baby aspirin and atorvastatin 40 mg p.o. daily Continue the addition of Effient 10 mg daily Prescriptions for new cardiac medications have been sent to patient's pharmacy Patient is cleared for discharge from cardiology and will follow-up in the office with Dr. Smith in 1 week. Nurse practitioner note has been reviewed, I agree with documented findings and plan of care. Patient was seen and examined. Objective - Vital Signs Vital signs: Vital Signs Temp 98.6 F 07/03/24 08:00 Pulse 70 07/03/24 08:00 Resp 17 07/03/24 08:00 BP 164/79 07/03/24 08:00 Pulse Ox 100 07/03/24 08:00 FiO2 Intake & Output 07/02/24 07/03/24 07/03/24 18:59 06:59 18:59 Intake Total 1178 Balance 1178 Weight 80.739 kg Intake: IV 100 Oral 1078 Other: Voiding Method Toilet # Voids 2 2 - Labs CBC & Chem 7: 06/28/24 13:55 07/03/24 05:37
--- NOTE | 2024-07-04 02:28 | PN ---
PROGRESS NOTE DATE OF SERVICE: 07/03/2024 CHIEF COMPLAINT: Acute coronary artery syndrome. HISTORY OF PRESENT ILLNESS: This lady is doing well after stenting of her circumflex. She may be going home today. PHYSICAL EXAMINATION: CHEST: Clear. CARDIAC: Normal. ABDOMEN: Soft, nontender. IMPRESSION: Chest pain and coronary artery disease. PLAN: Possibly home today. MMODL / IJN: [id number] /
[2024-07-04 08:15] VITALS: BP 124/77; PULSE 75; RESP 16; TEMP 98.2
--- NOTE | 2024-07-04 13:24 | P.PN ---
Subjective Progress Note Date: 07/04/24 Patient evaluated. Denies any chest discomfort. Resting comfortably in bed. Patient is very anxious to be discharged home. She states she does not know why she did not go home yesterday. Patient was cleared by cardiology to be discharged yesterday morning. On examination blood pressure 124/77 mmHg pulse rate in the 75, afebrile Breath sounds are clear Heart sounds S1-S2 normal Impression Patient presented with chest discomfort 2D echo shows preserved LV systolic function with pericardial thickening Nuclear portion of the stress test was read as abnormal with possible inferolateral ischemia Cardiac catheterization revealed chronic total occlusion of the RCA distally in the RCA fills by contralateral collateral. Severe disease involving the proximal left circumflex status post successful PCI of the left circumflex. Elevated left-sided filling pressures. Patient is to be on dual antiplatelet therapy with aspirin and Brilinta for 6 to 12 months. Continue aggressive cholesterol control. Continue baby aspirin and atorvastatin 40 mg p.o. daily Continue the addition of Effient 10 mg daily Prescriptions for new cardiac medications have been sent to patient's pharmacy on 07/03 Patient is cleared for discharge from cardiology and will follow-up in the office with Dr. Smith in 1 week. Nurse practitioner note has been reviewed, I agree with documented findings and plan of care. Patient was seen and examined. Objective - Vital Signs Vital signs: Vital Signs Temp 98.2 F 07/04/24 08:00 Pulse 75 07/04/24 08:00 Resp 16 07/04/24 08:00 BP 124/77 07/04/24 08:00 Pulse Ox 97 07/04/24 08:13 FiO2 Intake & Output 07/03/24 07/04/24 07/04/24 18:59 06:59 18:59 Intake Total 118 Balance 118 Intake: Oral 118 Other: Voiding Method Toilet # Voids 2 2 - Labs CBC & Chem 7: 06/28/24 13:55 07/03/24 05:37
--- NOTE | 2024-07-04 13:56 | DS ---
DISCHARGE SUMMARY CHIEF COMPLAINT: Chest pain. HISTORY OF PRESENT ILLNESS AND PHYSICAL EXAMINATION: Details of this lady's history and physical can be found in the initial workup. LABORATORY STUDIES: While she was in the hospital, she had laboratory studies, details of which can be found in the laboratory section of her chart. COURSE IN THE HOSPITAL: After admission, she was placed on bedrest, started intravenous fluids and she had serial EKGs and enzymes. She was seen by Cardiology and taken for a stress test and a subsequent cardiac cath, where she was found to have a narrowed circumflex artery, which was stented. Postoperatively, she did well. She was stable and felt that she could go home on the 3rd and she will follow up with Cardiology and in my office as well. FINAL DIAGNOSES: 1. Acute coronary syndrome. 2. Coronary artery disease. OPERATIONS: Cardiac cath with stenting and she is improved. MMANGIEL / IJDrake: [id number] /
== END 2024-07-04 11:33 | disposition home or self-care (01) | DRG 175 ==
LOC: EC 12:21 → 6NMEDSUR 17:28 → OBSVTOIN 17:29 → 6NMEDSUR 20:34
PROVIDERS: ADMIT Family Medicine; ATTEND Family Medicine
PROC: 027034Z Dilation of Coronary Artery, One Artery with Drug-eluting Intraluminal Device, Percutaneous Approach (ICD-10-PCS; principal; 2024-07-02 13:15)
PROC: B240ZZ3 Ultrasonography of Single Coronary Artery, Intravascular (ICD-10-PCS; principal; 2024-07-02 13:15)
PROC: B2111ZZ Fluoroscopy of Multiple Coronary Arteries using Low Osmolar Contrast (ICD-10-PCS; principal; 2024-07-02 13:15)
PROC: 4A023N7 Measurement of Cardiac Sampling and Pressure, Left Heart, Percutaneous Approach (ICD-10-PCS; principal; 2024-07-02 13:15)
PROC: 4A033BC Measurement of Arterial Pressure, Coronary, Percutaneous Approach (ICD-10-PCS; principal; 2024-07-02 13:15)
DX: I25.118 Atherosclerotic heart disease of native coronary artery with other forms of angina pectoris (principal); I25.82 Chronic total occlusion of coronary artery; F17.210 Nicotine dependence, cigarettes, uncomplicated; E78.5 Hyperlipidemia, unspecified; M19.90 Unspecified osteoarthritis, unspecified site; R19.7 Diarrhea, unspecified; R11.0 Nausea; I10 Essential (primary) hypertension; I24.9 Acute ischemic heart disease, unspecified; I25.2 Old myocardial infarction; J45.909 Unspecified asthma, uncomplicated; R04.0 Epistaxis; Z79.899 Other long term (current) drug therapy; Z11.52 Encounter for screening for COVID-19
CPT/HCPCS: 36415; 71046; 78452; 80053; 80061; 81003; 82565; 83690; 83735; 83880; 84484; 85025; 85610; 85730; 87636; 92978; 93005; 93017; 93306; 93458; 93799; 94760; 96360; 96361; 99285

== ENCOUNTER 2024-09-23 10:04 | Observation (INO) | payer OTHER ==
--- NOTE | 2024-09-23 10:28 | ED ---
General Adult HPI - General Source: patient, RN notes reviewed Mode of arrival: ambulatory Limitations: no limitations <Nu Farris - Last Filed: 09/23/24 10:27> <Macario York - Last Filed: 09/23/24 13:10> - General Chief complaint: Chest Pain Stated complaint: chest pain Time Seen by Provider: 09/23/24 10:21 - History of Present Illness Initial comments: Quick [id number] female with a history of CAD and cardiac stent in May presenting to emergency department with complaints of chest pain for "some time "that will occasionally radiate into her neck. Currently is chest pain-free. Is endorsing left lower abdominal pain with no associated urinary or bowel habit changes. (Nu Farris) 54-year-old female presenting with chest pain which is predominantly exertional radiating into her neck. Patient states that she was seen earlier this year and had stent placement. She was prescribed medication but has been noncompliant with this medication due to family issues. She denies chest pain at the time my evaluation. She was on dual antiplatelet but has not been taking this medication. (Macario York) - Related Data Home Medications Medication Instructions Recorded Confirmed ALPRAZolam [Xanax] 0.25 mg PO DAILY PRN 06/28/24 06/28/24 Cholecalciferol (Vitamin D3) 1,250 mcg PO Q30D 06/28/24 06/28/24 [Vitamin D3 (1250 Mcg = 50,000 Iu)] DULoxetine HCL [Cymbalta] 30 mg PO DAILY 06/28/24 06/28/24 HYDROcodone/APAP 5-325MG [[place] 1 tab PO DAILY PRN 06/28/24 06/28/24 5-325] QUEtiapine [SEROquel] 100 mg PO HS 06/28/24 06/28/24 lisinopriL [Zestril] 10 mg PO DAILY 06/28/24 06/28/24 Previous Rx's Medication Instructions Recorded amLODIPine [Norvasc] 10 mg PO DAILY 30 Days #30 tab 11/04/21 Aspirin 81 mg PO DAILY tab 07/03/24 Atorvastatin [Lipitor] 40 mg PO DAILY #90 tab 07/03/24 Prasugrel [Effient] 10 mg PO DAILY #90 tab 07/03/24 Allergies Allergy/AdvReac Type Severity Reaction Status Date / Time No Known Allergies Allergy Verified 09/23/24 10:22 Review of Systems ROS Other: All systems not noted in ROS Statement are negative. <Nu Farris - Last Filed: 09/23/24 10:27> ROS Other: All systems not noted in ROS Statement are negative. <PiposaminaMacario Drake - Last Filed: 09/23/24 13:10> ROS Statement: Those systems with pertinent positive or pertinent negative responses have been documented in the HPI. Past Medical History Past Medical History: Asthma, Hypertension, Osteoarthritis (OA) Additional Past Medical History / Comment(s): cardiac stent History of Any Multi-Drug Resistant Organisms: None Reported Past Surgical History: No Surgical Hx Reported Past Anesthesia/Blood Transfusion Reactions: No Reported Reaction Past Psychological History: Bipolar Smoking Status: Current every day smoker Past Alcohol Use History: Occasional - Past Family History Mother Family Medical History: Hypertension Father Family Medical History: Hypertension Sister(s) Family Medical History: Cancer Additional Family Medical History / Comment(s): Breast cancer <Nu Farris - Last Filed: 09/23/24 10:27> General Exam Limitations: no limitations <Nu Farris - Last Filed: 09/23/24 10:27> General appearance: alert, in no apparent distress Head exam: Present: atraumatic, normocephalic Eye exam: Present: normal appearance, PERRL ENT exam: Present: normal exam Neck exam: Present: normal inspection. Absent: tenderness, meningismus Respiratory exam: Present: normal lung sounds bilaterally. Absent: respiratory distress Cardiovascular Exam: Present: regular rate, normal rhythm GI/Abdominal exam: Present: soft. Absent: distended, tenderness Extremities exam: Present: normal inspection, normal capillary refill Neurological exam: Present: alert, oriented X3, CN II-XII intact. Absent: motor sensory deficit Psychiatric exam: Present: normal affect, normal mood Skin exam: Present: warm, dry, intact. Absent: cyanosis, diaphoretic <Macario York - Last Filed: 09/23/24 13:10> - General Exam Comments Initial Comments: Visual Physical Exam Vital signs reviewed General: Well-appearing, nontoxic, no acute distress. Head: Normocephalic, atraumatic Eyes: PERRLA, EOMI ENT: Airway patent Chest: Nonlabored breathing Skin: No visual rash, normal skin tone Neuro: Alert and oriented 3 Musculoskeletal: No gross abnormalities (Nu Farris) Course Vital Signs 09/23/24 10:18 Temperature 98.0 F Pulse Rate 77 Respiratory 18 Rate Blood Pressure 165/87 O2 Sat by Pulse 100 Oximetry Medical Decision Making <Nu Farris - Last Filed: 09/23/24 10:27> - Lab Data Result diagrams: 09/23/24 10:30 09/23/24 10:30 <Macario York - Last Filed: 09/23/24 13:10> - Medical Decision Making I completed the quick note portion of this chart signed Nu Farris PA-C (Nu Farris) Was pt. sent in by a medical professional or institution ([facility], [employer], urgent care, hospital, or alf...) When possible be specific @ -No Did you speak to anyone other than the patient for history (EMS, parent, family, police, friend...)? What history was obtained from this source @ -No Did you review nursing and triage notes (agree or disagree)? Why? @ -I reviewed and agree with nursing and triage notes Were old charts reviewed (outside hosp., previous admission, EMS record, old EKG, old radiological studies, urgent care reports/EKG's, alf records)? Report findings @ -No old charts were reviewed Differential Chest Pain: Stable Angina, Unstable Angina, STEMI, NSTEMI Aortic Dissection, Pneumothorax, Musculoskeletal, Esophageal Spasm GERD, Cholecystitis, Pancreatitis, Zoster, this is not meant to be an all-inclusive list. EKG interpreted by me (3pts min.). @Sinus rhythm no ST segment elevation, Q waves in the inferior leads rate of 68, WA interval 129, QRS duration 103, QTc 412 X-rays interpreted by me (1pt min.). @ -None done CT interpreted by me (1pt min.). @ -None done U/S interpreted by me (1pt. min.). @ -None done What testing was considered but not performed or refused? (CT, X-rays, U/S, labs)? Why? @ -None What meds were considered but not given or refused? Why? @ -None Did you discuss the management of the patient with other professionals (professionals i.e. , PA, AIRCRAFT SERVICER, lab, RT, psych nurse, oncology social worker, lead former, teacher, giving officer, outpatient case manager)? Give summary @Dr. Andrews Was smoking cessation discussed for >3mins.? @ -No Was critical care preformed (if so, how long)? @ -No Were there social determinants of health that impacted care today? How? (Homelessness, low income, unemployed, alcoholism, drug addiction, transportation, low edu. Level, literacy, decrease access to med. care, intermediate, rehab)? @ -No Was there de-escalation of care discussed even if they declined (Discuss DNR or withdrawal of care, Hospice)? DNR status @ -No What co-morbidities impacted this encounter? (DM, HTN, Smoking, COPD, CAD, Cancer, CVA, ARF, Chemo, Hep., AIDS, mental health diagnosis, sleep apnea, morbid obesity)? @ -Coronary disease Was patient admitted / discharged? Hospital course, mention meds given and route, prescriptions, significant lab abnormalities, going to OR and other pertinent info. @ -54-year-old female history of coronary disease status post stenting several months prior with increased exertional chest pain. Pain is typical in nature. EKG shows inferior Q waves with T wave inversion concerning for ischemia. Concerning for unstable angina in the setting of medication noncompliance and known coronary disease with recent stenting. Patient placed on heparin after given aspirin in the emergency department. CBC, CMP and initial troponin are unremarkable. Serial cardiac enzymes will be ordered. Consultation with cardiology. Undiagnosed new problem with uncertain prognosis? @ -No Drug Therapy requiring intensive monitoring for toxicity (Heparin, Nitro, Insulin, Cardizem)? @ -No Were any procedures done? @ -No Diagnosis/symptom? @Unstable angina Acute, or Chronic, or Acute on Chronic? @ -Acute Uncomplicated (without systemic symptoms) or Complicated (systemic symptoms)? @ -Default Side effects of treatment? @ -No Exacerbation, Progression, or Severe Exacerbation? @ -No Poses a threat to life or bodily function? How? (Chest pain, [place], [place], pneumonia, PE, COPD, DKA, ARF, appy, cholecystitis, CVA, Diverticulitis, Homicidal, Suic idal, threat to staff... and all critical care pts) @ -Yes, ACS (Macario York) - Lab Data Lab Results 09/23/24 09/23/24 09/23/24 Range/Units 10:30 10:30 10:30 WBC 5.31 (4.50-10.00) 10*3/uL RBC 4.43 (4.10-5.20) 10*6/uL Hgb 12.9 (12.0-15.0) g/dL Hct 39.0 (37.2-46.3) % MCV 88.0 (80.0-97.0) fL MCH 29.1 (27.0-32.0) pg MCHC 33.1 (32.0-37.0) g/dL Plt Count 159 (140-440) 10*3/uL MPV 11.8 (9.5-12.2) fL Immature Gran % (Auto) 0.4 % Neutrophils % 64.9 % Lymphocytes % 27.3 % Monocytes % 6.4 % Eosinophils % 0.8 % Basophils % 0.2 % Immature Gran # 0.02 (0.00-0.04) 10*3/uL Neutrophils # 3.45 (1.80-7.70) 10*3/uL Lymphocytes # 1.45 (0.90-5.00) 10*3/uL Monocytes # 0.34 (0.20-1.00) 10*3/uL Eosinophils # 0.04 (0.04-0.35) 10*3/uL Basophils # 0.01 (0.00-0.10) 10*3/uL PT 10.1 (10.0-12.5) sec INR 0.9 (<1.2) APTT 21.3 L (22.0-30.0) sec Sodium 141 (137-145) mmol/L Potassium 4.3 (3.5-5.1) mmol/L Chloride 111 H (98-107) mmol/L Carbon Dioxide 21 L (22-30) mmol/L Anion Gap 9 mmol/L BUN 14 (7-17) mg/dL Creatinine 0.74 (0.52-1.04) mg/dL Est GFR (CKD-EPI)AfAm >90 (>60 ml/min/1.73 sqM) Est GFR (CKD-EPI)NonAf >90 (>60 ml/min/1.73 sqM) Glucose 107 H (74-99) mg/dL Calcium 9.3 (8.4-10.2) mg/dL Magnesium 1.7 (1.6-2.3) mg/dL Total Bilirubin 0.9 (0.2-1.3) mg/dL AST 41 H (14-36) U/L ALT 29 (4-34) U/L Alkaline Phosphatase 70 (38-126) U/L Troponin I (0.000-0.034) ng/mL Total Protein 9.5 H (6.3-8.2) g/dL Albumin 4.5 (3.5-5.0) g/dL Lipase 71 (23-300) U/L Urine Color Urine Appearance (Clear) Urine pH (5.0-8.0) Ur Specific [place] (1.001-1.035) Urine Protein (Negative) Urine Glucose (UA) (Negative) Urine Ketones (Negative) Urine Blood (Negative) Urine Nitrite (Negative) Urine Bilirubin (Negative) Urine Urobilinogen (<2.0) mg/dL Ur Leukocyte Esterase (Negative) Urine RBC (0-5) /hpf Urine WBC (0-5) /hpf Ur Squamous Epith Cells (0-4) /hpf Urine Bacteria (None) /hpf Urine Mucus (None) /hpf 09/23/24 09/23/24 Range/Units 10:30 11:11 WBC (4.50-10.00) 10*3/uL RBC (4.10-5.20) 10*6/uL Hgb (12.0-15.0) g/dL Hct (37.2-46.3) % MCV (80.0-97.0) fL MCH (27.0-32.0) pg MCHC (32.0-37.0) g/dL Plt Count (140-440) 10*3/uL MPV (9.5-12.2) fL Immature Gran % (Auto) % Neutrophils % % Lymphocytes % % Monocytes % % Eosinophils % % Basophils % % Immature Gran # (0.00-0.04) 10*3/uL Neutrophils # (1.80-7.70) 10*3/uL Lymphocytes # (0.90-5.00) 10*3/uL Monocytes # (0.20-1.00) 10*3/uL Eosinophils # (0.04-0.35) 10*3/uL Basophils # (0.00-0.10) 10*3/uL PT (10.0-12.5) sec INR (<1.2) APTT (22.0-30.0) sec Sodium (137-145) mmol/L Potassium (3.5-5.1) mmol/L Chloride (98-107) mmol/L Carbon Dioxide (22-30) mmol/L Anion Gap mmol/L BUN (7-17) mg/dL Creatinine (0.52-1.04) mg/dL Est GFR (CKD-EPI)AfAm (>60 ml/min/1.73 sqM) Est GFR (CKD-EPI)NonAf (>60 ml/min/1.73 sqM) Glucose (74-99) mg/dL Calcium (8.4-10.2) mg/dL Magnesium (1.6-2.3) mg/dL Total Bilirubin (0.2-1.3) mg/dL AST (14-36) U/L ALT (4-34) U/L Alkaline Phosphatase (38-126) U/L Troponin I 0.014 (0.000-0.034) ng/mL Total Protein (6.3-8.2) g/dL Albumin (3.5-5.0) g/dL Lipase (23-300) U/L Urine Color Yellow Urine Appearance Cloudy H (Clear) Urine pH 5.5 (5.0-8.0) Ur Specific [place] 1.025 (1.001-1.035) Urine Protein Trace H (Negative) Urine Glucose (UA) Negative (Negative) Urine Ketones Negative (Negative) Urine Blood Negative (Negative) Urine Nitrite Negative (Negative) Urine Bilirubin Negative (Negative) Urine Urobilinogen <2.0 (<2.0) mg/dL Ur Leukocyte Esterase Negative (Negative) Urine RBC 1 (0-5) /hpf Urine WBC 1 (0-5) /hpf Ur Squamous Epith Cells 17 H (0-4) /hpf Urine Bacteria Occasional H (None) /hpf Urine Mucus Few H (None) /hpf Disposition <Nu Farris - Last Filed: 09/23/24 10:27> Is patient prescribed a controlled substance at d/c from ED?: No Time of Disposition: 12:50 <Macario York - Last Filed: 09/23/24 13:10> Clinical Impression: Unstable angina pectoris Disposition: ADMITTED IP TO THIS HOSP Condition: Stable Referrals: Adair Andrews MD [Primary Care Provider] - 1-2 days
--- NOTE | 2024-09-23 10:50 | XR ---
EXAMINATION TYPE: XR chest 2V DATE OF EXAM: 09/23/2024 10:45 AM COMPARISON: 06/28/2024 CLINICAL INDICATION: Female, 54 years old with history of Chest Pain, TECHNIQUE: XR chest 2V view(s) obtained. FINDINGS: The heart size is normal. The pulmonary vasculature is normal. The lungs are clear. IMPRESSION: 1. No acute pulmonary process. [facility], , 09/23/2024 10:48 AM
[2024-09-23 10:57] LABS: Basophils # (A) 0.01 10*3/uL (0.00-0.10); Basophils % (A) 0.2 %; Eosinophils # (A) 0.04 10*3/uL (0.04-0.35); Eosinophils % (A) 0.8 %; HGB 12.9 g/dL (12.0-15.0); Lymphocytes # (A) 1.45 10*3/uL (0.90-5.00); Lymphocytes % (A) 27.3 %; MCH 29.1 pg (27.0-32.0); MCHC 33.1 g/dL (32.0-37.0); Mean Platelet Volume 11.8 fL (9.5-12.2); Monocytes # (A) 0.34 10*3/uL (0.20-1.00); Monocytes % (A) 6.4 %; Neutrophils # (A) 3.45 10*3/uL (1.80-7.70); Neutrophils % (A) 64.9 %; Platelet Count 159 10*3/uL (140-440); RBC 4.43 10*6/uL (4.10-5.20); RDW 14.2 % (11.5-14.5); WBC 5.31 10*3/uL (4.50-10.00)
[2024-09-23 11:07] LABS: INR 0.9 (<1.2); Prothrombin Time 10.1 sec (10.0-12.5)
[2024-09-23 11:12] LABS: ALT 29 U/L (4-34); African American GFR (CKD) >90 (>60 ml/min/1.73 sqM); Albumin 4.5 g/dL (3.5-5.0); Anion Gap 9 mmol/L; Blood Urea Nitrogen 14 mg/dL (7-17); Calcium 9.3 mg/dL (8.4-10.2); Carbon Dioxide 21 mmol/L (22-30); Chloride 111 mmol/L (98-107); Glucose 107 mg/dL (74-99); Lipase 71 U/L (23-300); Non-African American GFR(CKD) >90 (>60 ml/min/1.73 sqM); Sodium 141 mmol/L (137-145); Total Bilirubin 0.9 mg/dL (0.2-1.3); Total Protein 9.5 g/dL (6.3-8.2)
[2024-09-23 11:13] LABS: Magnesium 1.7 mg/dL (1.6-2.3); Potassium 4.3 mmol/L (3.5-5.1)
[2024-09-23 11:14] LABS: AST 41 U/L (14-36); Alkaline Phosphatase 70 U/L (38-126)
[2024-09-23 11:23] LABS: Partial Thromboplastin Time 21.3 sec (22.0-30.0)
[2024-09-23 11:34] LABS: Appearance,Urine Cloudy (Clear); Bacteria,Urine Occasional /hpf; Bilirubin,Urine Negative (Negative); Blood,Urine Negative (Negative); Color,Urine Yellow; Glucose,Urine (UA) Negative (Negative); Ketones,Urine Negative (Negative); Leukocyte Esterase,Urine Negative (Negative); Mucus,Urine Few /hpf; Nitrite,Urine Negative (Negative); PH, Urine 5.5 (5.0-8.0); Protein,Urine Trace (Negative); RBC,Urine 1 /hpf (0-5); Specific Gravity,Urine 1.025 (1.001-1.035); Squamous Epithelial Cell,Urine 17 /hpf (0-4); Urobilinogen,Urine <2.0 mg/dL (<2.0); WBC,Urine 1 /hpf (0-5)
[2024-09-23] MEDS ORDERED: ACETAMINOPHEN TAB 325 MG TAB PO PRN (12:50)
[2024-09-23] MEDS ORDERED: NALOXONE 0.4 MG/ML 1 ML VIAL IV PRN (12:50)
[2024-09-23] MEDS ORDERED: ONDANSETRON 4 MG/2 ML VIAL IVP PRN (12:50)
[2024-09-23] MEDS: HEPARIN SODIUM 1,000 UN/ML (10ML VL) IV ONE (13:05)
[2024-09-23] MEDS: ASPIRIN 325 MG TAB PO STA (13:13)
[2024-09-23] MEDS: HEPARIN SOD,PORK IN 0.45% NACL 25,000 UNIT in 0.45% NACL 1 250ML.BAG IV SCH (13:14)
[2024-09-23] MEDS ORDERED: ALPRAZolam 0.25 MG TAB PO PRN (15:04)
[2024-09-23] MEDS: BRIMONIDINE TARTRATE 0.2% DROPS 5 ML BTL BOTH EYES SCH (21:07)
[2024-09-23] MEDS: DORZOLAMIDE HCL 2% DROPS 10 ML BTL BOTH EYES SCH (21:08)
[2024-09-24 06:19] LABS: Basophils # (A) 0.01 10*3/uL (0.00-0.10); Basophils % (A) 0.2 %; Eosinophils # (A) 0.06 10*3/uL (0.04-0.35); HCT 37.5 % (37.2-46.3); Lymphocytes # (A) 2.02 10*3/uL (0.90-5.00); Lymphocytes % (A) 35.2 %; MCH 28.6 pg (27.0-32.0); MCV 89.3 fL (80.0-97.0); Mean Platelet Volume 12.2 fL (9.5-12.2); Monocytes # (A) 0.43 10*3/uL (0.20-1.00); Monocytes % (A) 7.5 %; Neutrophils % (A) 55.8 %; Platelet Count 137 10*3/uL (140-440); RDW 14.3 % (11.5-14.5); WBC 5.74 10*3/uL (4.50-10.00)
[2024-09-24 06:45] LABS: INR 0.9 (<1.2); Prothrombin Time 10.4 sec (10.0-12.5)
[2024-09-24] MEDS: HEPARIN SODIUM 1,000 UN/ML (10ML VL) IV PRN (07:20)
[2024-09-24] MEDS ORDERED: DOBUTamine DRIP for NUC MED 500 MG/250 ML BAG IV ONE (08:00)
[2024-09-24] MEDS ORDERED: DOBUTamine DRIP for NUC MED 500 MG in DEXTROSE/WATER 1 250ML.BAG IV PRN (08:39)
[2024-09-24] MEDS ORDERED: PRASUGREL 10 MG TAB PO SCH (09:00)
[2024-09-24 09:32] VITALS: RESP 16
[2024-09-24] MEDS: ATORVASTATIN 10 MG TAB PO SCH (09:52)
[2024-09-24] MEDS: ASPIRIN 81 MG PO SCH (09:52)
[2024-09-24] MEDS: amLODIPine 10 MG TAB PO SCH (09:52)
[2024-09-24] MEDS: CLOPIDOGREL 75 MG TAB PO ONE (09:52)
[2024-09-24] MEDS: DULoxetine HCL 30 MG CAPSULE.DR PO SCH (09:54)
--- NOTE | 2024-09-24 10:14 | P.CRDCN ---
History of Present Illness History of present illness: HISTORY OF PRESENTING ILLNESS This is a pleasant 54-year-old -[place] female past medical history significant for coronary artery disease status post PCI, hypertension, chronic nicotine dependence, previous illicit drug use and dyslipidemia. She was supposed to follow-up in the office with Dr. Smith post PCI but never did. We have been asked to see in consultation for chest pain. She states yesterday she was grilling in her backyard when she developed a sharp pain in the chest and the left torso. The pain was worse with activity and movement. Associated with some shortness of breath. She underwent Lexiscan stress test which was abnormal in June 2024 prompting a left heart catheter revealing chronically occluded RCA with collateral flow and a circumflex lesion which required PCI. She never followed up in the office and stopped taking her Effient about 1 month ago. EKG reveals sinus rhythm with some J-point elevation in the anterior leads which appears similar to previous EKG. Chest x-ray is negative for any acute cardiopulmonary process. Laboratory data reviewed, WBC 5.7, hemoglobin 12, platelets 137, sodium 141, potassium 4.3, creatinine 0.74, magnesium 1.7, troponin negative x 3. Echocardiogram obtained June 2024 revealed preserved LV systolic function with ejection fraction 60%, mild aortic regurgitation, mild mitral regurgitation and trace tricuspid regurgitation. REVIEW OF SYSTEMS At the time of my exam: CONSTITUTIONAL: Denies fever or chills. CARDIOVASCULAR: Denies chest pain, shortness of breath, orthopnea, PND or palpitations. RESPIRATORY: Denies cough. GASTROINTESTINAL: Denies abdominal pain, diarrhea, constipation, nausea or vomiting. MUSCULOSKELETAL: Denies myalgias. NEUROLOGIC: Denies numbness, tingling, headache or weakness. ENDOCRINE: Denies fatigue, weight change, polydipsia or polyurina. GENITOURINARY: Denies burning, hematuria or urgency with micturation. HEMATOLOGIC: Denies history of anemia or bleeding. PHYSICAL EXAMINATION Blood pressure 162/79 heart rate 62 afebrile and maintaining oxygen saturation on room air. CONSTITUTIONAL: No apparent distress. HEENT: Head is normocephalic. Pupils are equal, round. Sclerae anicteric. Mucous membranes of the mouth are moist. No JVD. No carotid bruit. CHEST EXAMINATION: Lungs are clear to auscultation. No chest wall tenderness is noted on palpation or with deep breathing. HEART EXAMINATION: Regular rate and rhythm. S1, S2 heard. No murmurs, gallops or rub. ABDOMEN: Soft, nontender. EXTREMITIES: 2+ peripheral pulses, no lower extremity edema and no calf tenderne ss. NEUROLOGIC EXAMINATION: Patient is awake, alert and oriented x3. ASSESSMENT Chest pain, atypical. Coronary artery disease status post PCI June 2024 Medical noncompliance Hypertension Dyslipidemia Chronic nicotine dependence PLAN An acute coronary event has been ruled out. Load with plavix 300 mg today and take 75 mg daily starting tomorrow. The importance of dual anti-platelet therapy discussed in great detail. Discontinue heparin infusion. Dobutamine stress echocardiogram today. Tobacco cessation recommended. If stress test is normal she may be discharged from a cardiac perspective and follow-up in the office with Dr. Smith. Thank you kindly for this consultation. Nurse Practitioner note has been reviewed, I agree with a documented findings and plan of care. Patient was seen and examined. Past Medical History Past Medical History: Asthma, Hypertension, Osteoarthritis (OA) Additional Past Medical History / Comment(s): cardiac stent History of Any Multi-Drug Resistant Organisms: None Reported Past Surgical History: No Surgical Hx Reported Past Anesthesia/Blood Transfusion Reactions: No Reported Reaction Past Psychological History: Bipolar Smoking Status: Current every day smoker Past Alcohol Use History: Occasional - Past Family History Mother Family Medical History: Hypertension Father Family Medical History: Hypertension Sister(s) Family Medical History: Cancer Additional Family Medical History / Comment(s): Breast cancer Medications and Allergies Home Medications Medication Instructions Recorded Confirmed Type amLODIPine [Norvasc] 10 mg PO DAILY 30 Days #30 tab 11/04/21 09/23/24 Rx ALPRAZolam [Xanax] 0.25 mg PO DAILY PRN 06/28/24 09/23/24 History DULoxetine HCL [Cymbalta] 30 mg PO DAILY 06/28/24 09/23/24 History Aspirin 81 mg PO DAILY tab 07/03/24 09/23/24 Rx Prasugrel [Effient] 10 mg PO DAILY #90 tab 07/03/24 09/23/24 Rx Atorvastatin [Lipitor] 10 mg PO DAILY 09/23/24 09/23/24 History Brimonidine Tartrate [Alphagan P 1 drop BOTH EYES BID 09/23/24 09/23/24 History 0.2% Ophth Soln] Dorzolamide HCl/Pf [Dorzolamide 2% 1 drop BOTH EYES BID 09/23/24 09/23/24 History Eye Drop] Ergocalciferol [Vitamin D2 (1250 1,250 mcg PO QMONTHLY 09/23/24 09/23/24 History Mcg = 84045 Iu)] Metoprolol Succinate (ER) [Toprol 25 mg PO DAILY 09/23/24 09/23/24 History Xl] Allergies Allergy/AdvReac Type Severity Reaction Status Date / Time No Known Allergies Allergy Verified 09/23/24 13:23 Physical Exam Vitals: Vital Signs Temp Pulse Resp BP Pulse Ox 09/24/24 07:58 62 18 153/81 99 09/24/24 05:00 68 17 155/77 97 09/24/24 04:00 61 16 120/88 95 09/24/24 03:00 61 20 141/89 96 09/23/24 23:00 90 18 162/73 98 09/23/24 19:09 98.0 F 67 20 162/73 97 09/23/24 15:02 98.1 F 83 20 160/80 100 09/23/24 13:26 98.1 F 68 16 138/77 100 09/23/24 10:18 98.0 F 77 18 165/87 100 Intake and Output 09/23/24 09/24/24 09/24/24 22:59 06:59 14:59 Intake Total 172.561 Balance 172.561 Intake: Intake, IV Titration 172.561 Amount Heparin Sod,Pork in 0.45% 172.561 NaCl 25,000 unit In 0.45 % NaCl 1 250ml.bag @ 12 UNITS/KG/HR 9.525 mls/hr IV .Q24H [facility] Rx#: [id number] Results 09/24/24 05:38 09/23/24 10:30 Cardiac Enzymes 09/23/24 09/23/24 09/23/24 Range/Units 10:30 10:30 14:21 AST 41 H (14-36) U/L Troponin I 0.014 <0.012 (0.000-0.034) ng/mL 09/23/24 Range/Units 18:17 AST (14-36) U/L Troponin I <0.012 (0.000-0.034) ng/mL Coagulation 09/23/24 09/23/24 09/24/24 Range/Units 10:30 18:17 05:38 PT 10.1 10.4 (10.0-12.5) sec APTT 21.3 L 47.3 H 39.0 H (22.0-30.0) sec CBC 09/23/24 09/24/24 Range/Units 10:30 05:38 WBC 5.31 5.74 (4.50-10.00) 10*3/uL RBC 4.43 4.20 (4.10-5.20) 10*6/uL Hgb 12.9 12.0 (12.0-15.0) g/dL Hct 39.0 37.5 (37.2-46.3) % Plt Count 159 137 L (140-440) 10*3/uL Comprehensive Metabolic Panel 09/23/24 Range/Units 10:30 Sodium 141 (137-145) mmol/L Potassium 4.3 (3.5-5.1) mmol/L Chloride 111 H (98-107) mmol/L Carbon Dioxide 21 L (22-30) mmol/L BUN 14 (7-17) mg/dL Creatinine 0.74 (0.52-1.04) mg/dL Glucose 107 H (74-99) mg/dL Calcium 9.3 (8.4-10.2) mg/dL AST 41 H (14-36) U/L ALT 29 (4-34) U/L Alkaline Phosphatase 70 (38-126) U/L Total Protein 9.5 H (6.3-8.2) g/dL Albumin 4.5 (3.5-5.0) g/dL Current Medications Generic Name Dose Route Start Last Admin Trade Name Freq PRN Reason Stop Dose Admin Acetaminophen 650 mg 09/23/24 12:50 Acetaminophen Tab 325 Mg Tab PO Q6HR PRN Mild Pain or Fever > 100.5 Alprazolam 0.25 mg 09/23/24 15:04 Alprazolam 0.25 Mg Tab PO DAILY PRN Anxiety Amlodipine Besylate 10 mg 09/24/24 09:00 Amlodipine 10 Mg Tab PO DAILY [facility] Aspirin 81 mg 09/24/24 09:00 Aspirin 81 Mg PO DAILY [facility] Atorvastatin Calcium 10 mg 09/24/24 09:00 Atorvastatin 10 Mg Tab PO DAILY [facility] Brimonidine Tartrate 1 drops 09/23/24 21:00 09/23/24 21:07 Brimonidine Tartrate 0.2% Drops 5 Ml Btl BOTH EYES 1 drops BID ONELIA Administration Dorzolamide HCl 1 drops 09/23/24 21:00 09/23/24 21:08 Dorzolamide Hcl 2% Drops 10 Ml Btl BOTH EYES 1 drops BID ONELIA Administration Duloxetine HCl 30 mg 09/24/24 09:00 Duloxetine Hcl 30 Mg Capsule.Dr PO DAILY [facility] Heparin Sodium (Porcine) 0 unit 09/23/24 12:43 09/24/24 07:20 Heparin Sodium 1,000 Un/Ml (10ml Vl) IV 1,975 unit PER PROTOCOL PRN Administration Low PTT Protocol Heparin Sodium/Sodium Chloride 250 mls @ 9.525 mls/hr 09/23/24 12:45 09/24/24 07:21 25,000 unit/ Sodium Chloride IV 14 units/kg/hr .Q24H ONELIA 11.113 mls/hr Titration Protocol 12 UNITS/KG/HR Metoprolol Succinate 25 mg 09/24/24 09:00 Metoprolol Succinate (Er) 25 Mg Tab.Er.24h PO DAILY [facility] Naloxone HCl 0.2 mg 09/23/24 12:50 Naloxone 0.4 Mg/Ml 1 Ml Vial IV Q2M PRN Opioid Reversal Ondansetron HCl 4 mg 09/23/24 12:50 Ondansetron 4 Mg/2 Ml Vial IVP Q8HR PRN Nausea And Vomiting Prasugrel 10 mg 09/24/24 09:00 Prasugrel 10 Mg Tab PO DAILY [facility] Intake and Output 09/23/24 09/24/24 09/24/24 22:59 06:59 14:59 Intake Total 172.561 Balance 172.561 Intake: Intake, IV Titration 172.561 Amount Heparin Sod,Pork in 0.45% 172.561 NaCl 25,000 unit In 0.45 % NaCl 1 250ml.bag @ 12 UNITS/KG/HR 9.525 mls/hr IV .Q24H [facility] Rx#: [id number] 09/24/24 05:38 09/23/24 10:30
--- NOTE | 2024-09-24 14:29 | CA ---
Dobutamine Stress Echocardiogram Report Tina Solorzano Age: 54 Gender: F : 1970 Exam Date: 09/24/2024 11:21 Exam Location: [facility] Ordering Physician: Alexia Multani Referring Physician: [facility] Nurse Practitioner: Awilda Morris RDCS Technologist: Ht (in): 61 Wt (lb): 175 Procedure CPT: Indication: CP ICD-9 Codes: Rhythm: Patient History: CHEST PAIN, HTN, PRIOR AR, HYPERCHOLESTEROLEMIA, FAMILY HX OF HEART DISEASE, NUMBNESS IN FACE/NECK, CURRENT SMOKER 0.25 PPD X 20 YEARS Cardiac Medications: SEE CHART,,,,, Medications in past 24 hours: Contrast: N/A Total Dose (mL): Stress Results Protocol: Dobutamine Peak Dose (???g/kg/min): 30 Duration (min:sec): Atropine:(mg) None Target HR: 139 Double Product: [id number] Resting HR: 62 Resting BP: 134 / 68 Peak HR: 141 Peak BP: 177 / 67 Max Predicted HR: 164 86 % Max Predicted HR Stress Summary: BP Response: Reason for Termination: Target HR Cardiac Symptoms: CHEST PAIN ECG Analysis Resting EKG: Stress EKG: Arrhythmia: Echo Analysis Base Echo Analysis: Low Echo Anaylsis: Peak Echo Analysis: Recovery Echo: MEASUREMENTS (Male/Female) Normal Values CONCLUSIONS Baseline EKG revealed normal sinus rhythm without significant ST-T changes. With dobutamine administration the heart rate went up to 141 bpm which is more than 85% of predicted maximal. Patient did not have any significant chest pain. There was no arrhythmia. There were no EKG changes to indicate by EKG criteria this is a unremarkable dobutamine stress test Baseline echo images revealed a focal area of hypokinesia involving the inferobasal wall best seen in the 2 chamber view, with dobutamine administration there was excellent augmentation of contractility of all segments except the inferior basal portion suggesting that there is no ischemia on this study but there is evidence of a small inferior basal prior myocardial infarction. No evidence of stress-induced ischemia. Final impression: #1 by EKG criteria this is unremarkable dobutamine stress test #2 dobutamine echocardiogram suggests old focal infero-basal AR without evidence of ischemia. Dr. Yessenia Garrett MD (Electronically Signed) Final Date: 24 September 2024 14:28
[2024-09-24] MEDS: METOPROLOL SUCCINATE (ER) 25 MG TAB.ER.24H PO SCH (14:45)
[2024-09-24 15:55] VITALS: BP 144/73; PULSE 79; TEMP 98.2
--- NOTE | 2024-09-25 01:05 | HP ---
HISTORY AND PHYSICAL CHIEF COMPLAINT: Chest pain. HISTORY OF PRESENT ILLNESS: This lady presented to the emergency room with a chest pain. She does have a history of coronary artery disease and she has had a coronary artery PTCA and stenting in the past. Cardiology has told that she needs to have another one opened as well. She presented to the emergency room. She has been off her medications. She did have some EKG changes in the emergency room. Troponins were normal. She was admitted. REVIEW OF SYSTEMS: She describes the pain as being more in the left lateral chest area. It is certainly not consistent with . She has had no shortness of breath, diaphoresis, pleurisy, cough, hemoptysis, sputum production, fever and chills, etc. PAST MEDICAL HISTORY: Essentially unremarkable. FAMILY HISTORY: Essentially unremarkable. PERSONAL AND SOCIAL HISTORY: Essentially unremarkable. MEDICATIONS: She is on numerous medications. She does smoke. PHYSICAL EXAMINATION: VITAL SIGNS: Blood pressure is 174/108 with a pulse of 77 and regular. Respirations were 35. GENERAL: She appeared to be slightly uncomfortable. SKIN: Dry. HEAD, EARS, EYES, NOSE, MOUTH AND THROAT: Unremarkable. CHEST: Clear. There was no chest wall tenderness. CARDIAC: Normal. ABDOMEN: Soft and nontender. EXTREMITIES: Normal. IMPRESSION: 1. Chest pain, atypical. 2. History of coronary artery disease. 3. Hypertension. PLAN: 1. Bedrest. 2. IV fluids. 3. Serial EKGs and enzymes. 4. Consult with Cardiology. MMODL / ANNALEEN: [id number] /
--- NOTE | 2024-09-25 02:00 | DS ---
DISCHARGE SUMMARY CHIEF COMPLAINT: Chest pain and uncontrolled hypertension. HISTORY OF PRESENT ILLNESS AND PHYSICAL EXAMINATION: Details of this lady's history and physical can be found in the initial workup. LABORATORY STUDIES: While she was in the hospital, she had laboratory studies, details of which can be found in the laboratory section of her chart. COURSE IN THE HOSPITAL: After admission, she was placed on bedrest, started on intravenous fluids, and had serial EKGs and enzymes. She was seen and followed by Cardiology. Apparently, she had a stress test, which was unremarkable and it was felt that she could be discharged. She will go home on her usual activity, diet, and medications and she will follow up with Cardiology as well as me in several days. FINAL DIAGNOSES: 1. Chest pain, atypical. Noncardiac. 2. History of coronary artery disease. 3. History of hypertension. OPERATIONS: None. CONSULTATIONS: Cardiology. NEIL / NATALIE: [id number] /
[2024-09-25] MEDS ORDERED: CLOPIDOGREL 75 MG TAB PO SCH (09:00)
== END 2024-09-24 17:02 | disposition home or self-care (01) ==
LOC: EC 10:04 → 3SCARD 12:51 → INTOOBSV 12:51 → 3SCARD 18:32 → 6NMEDSUR 09-24 07:03
PROVIDERS: ADMIT Family Medicine; ATTEND Family Medicine
DX: R07.89 Other chest pain (principal); I25.10 Atherosclerotic heart disease of native coronary artery without angina pectoris; T45.526A Underdosing of antithrombotic drugs, initial encounter; Z91.128 Patient's intentional underdosing of medication regimen for other reason; I08.3 Combined rheumatic disorders of mitral, aortic and tricuspid valves; I10 Essential (primary) hypertension; E78.5 Hyperlipidemia, unspecified; R10.32 Left lower quadrant pain; M54.2 Cervicalgia; F17.200 Nicotine dependence, unspecified, uncomplicated; Z79.82 Long term (current) use of aspirin; Z79.02 Long term (current) use of antithrombotics/antiplatelets; Z79.899 Other long term (current) drug therapy; Z95.5 Presence of coronary angioplasty implant and graft; Z87.898 Personal history of other specified conditions
CPT/HCPCS: 96376; 96365; 96366 ×2; 99285; 36415; 93005; 93351; 80053; 83690; 83735; 84484; 85025 ×2; 85610 ×2; 85730 ×2; 81001; 71046; G0378; J1250; J1644 ×3